=== PATIENT | male | born 1950 | race Caucasian/White ===

== ENCOUNTER 2016-12-02 18:20 | Inpatient (IN) | payer OTHER ==
[~2016-12-02] VITALS: Ht 167.6 cm; Wt 135.7 kg
[~2016-12-02 18:20] MED LIST: ADVAIR 500/501 DISK IH; AMARYL2 MG PO; CALCIUM600 M1 PO; CELEXA20 MG PO; CITALOPRAM HBR10 MG PO; COLACE100 MG PO; COREG12.5 M1 PO; COZAAR50 MG PO; DAILY VITE1 EAC1 PO; DALIRESP500 MCG PO; DOXYCYCLINE HY100 M3 PO; FLONASE16 G1 BOTH NARES; GLUCOPHAGE500 MG PO; IRON325 M1 PO; KLOR-CON M2020 MEQ PO; KLOR-CON-EF 2525 MEQ PO; LASIX20 MG PO; LASIX80 MG PO; LEVALBUTER1.25 MG/3 IH; LEVEMIR100 UNIT/2 SC; LEVOFLOXACIN750 MG PO; MIRALAX255 GM PO; MOBIC15 MG PO; NEURONTIN300 MG PO; NOVOFINE NEE1 NEEDLE MC; NOVOLOG100 UNIT/1 SC; PRAVACHOL20 MG PO; PREDNISONE10 MG PO; PREDNISONE20 MG PO; PROBIOTIC1 EAC1 PO; PROVENTIL,2.5 MG/3 M IH; SPIRIVA1 INHALATI IH; TAMSULOSIN HCL0.4 MG PO; TRAZODONE HCL50 MG PO; TUDORZA PRESS400 MCG IH; ULTRAM50 MG PO; VITAMIN D31000 UNIT PO; XOPENEX1.25 MG/0. IH
[2016-12-02 19:13] LABS: EOSINOPHIL (%) 0.5 % (0-5); EOSINOPHIL COUNT 0.1 K/uL (0-0.3); HEMATOCRIT 28.1 % (38.0-50.0); IMMATURE GRANULOCYTE (%) 1.4 % (0.0-0.7); IMMATURE GRANULOCYTE COUNT 2.7 K/uL; LYMPHOCYTE COUNT 1.4 K/uL (1.0-2.8); MCHC 30.2 G/DL (30.0-36.0); MCV 102.6 FL (86-99); MONOCYTE (%) 4.8 % (3-12); MONOCYTE COUNT 0.9 K/uL (0-0.8); NEUTROPHIL COUNT 16.8 K/uL (1.8-6.4); PLATELET COUNT 383 K/uL (156-360); RBC DIS.WIDTH-SD 57.4 % (39-53); RED BLOOD COUNT 2.74 M/uL (4.00-5.50); WHITE BLOOD COUNT 19.5 K/uL (4.1-10.2)
[2016-12-02 19:15] LABS: CHLORIDE 95 mEq/L (99-109); POTASSIUM 4.3 mEq/L (3.7-5.4); SODIUM 141 mEq/L (136-147)
[2016-12-02 19:17] LABS: GLUCOSE 120 mg/dL (70-99)
[2016-12-02 19:18] LABS: ANION GAP 8 MEQ/L (2-14)
[2016-12-02 19:20] LABS: GFR ESTIMATE (CALCULATED) > 59 mL/min/
[2016-12-02 19:21] LABS: UREA NITROGEN (BUN) 15 mg/dL (9-23)
[2016-12-02 19:32] LABS: TROP-I INTERPRETATION NEGATIVE; TROPONIN-I < 0.01 ng/mL (0.0-0.30)
[2016-12-02] MEDS ORDERED: SALINE NASAL SP45 ML BOTH NARES (21:11)
[2016-12-02 22:17] VITALS: BP 124/89
[2016-12-02 22:46] LABS: POINT-OF-CARE METER ID UU13113698
[2016-12-03 06:33] LABS: HEMATOCRIT 27.2 % (38.0-50.0); MCHC 29.8 G/DL (30.0-36.0); MCV 104.2 FL (86-99); MEAN PLAT.VOLUME 9.7 uM^3 (9.0-12.4); NRBC (%) 0.1 /100 WBC (0-0); PLATELET COUNT 322 K/uL (156-360); RBC DIS.WIDTH-CV 16.6 % (11.8-14.6); RBC DIS.WIDTH-SD 62.3 % (39-53); RED BLOOD COUNT 2.61 M/uL (4.00-5.50)
[2016-12-03 06:40] LABS: EOSINOPHIL (%) 0 % (0-5); IMMATURE GRANULOCYTE (%) 1.3 % (0.0-0.7); IMMATURE GRANULOCYTE COUNT 0.2 K/uL; LYMPHOCYTE COUNT 0.9 K/uL (1.0-2.8); MONOCYTE (%) 1.3 % (3-12); MONOCYTE COUNT 0.2 K/uL (0-0.8); NEUTROPHIL (%) 92.6 % (45-76); NEUTROPHIL COUNT 17.7 K/uL (1.8-6.4)
[2016-12-03 06:58] LABS: ANION GAP 9 MEQ/L (2-14); CHLORIDE 95 MEQ/L (99-109); GFR ESTIMATE (CALCULATED) > 59 mL/min/; SAMPLE HEMOLYSIS CHECK 0; SAMPLE ICTERIC CHECK 0; SAMPLE LIPEMIA CHECK 0; SODIUM 141 MEQ/L (136-147); UREA NITROGEN (BUN) 18 mg/dL (9-23)
[2016-12-03 07:12] LABS: GLUCOSE 215 mg/dL (70-99); POTASSIUM 5.4 MEQ/L (3.7-5.4)
[2016-12-03 07:45] VITALS: BP 118/58
[2016-12-03 07:50] LABS: POINT-OF-CARE METER ID UU14174216
[2016-12-03 11:03] LABS: POINT-OF-CARE METER ID UU14174216
[2016-12-03 11:37] VITALS: BP 138/60
[2016-12-03 15:43] VITALS: BP 130/55
[2016-12-03 16:03] LABS: POINT-OF-CARE METER ID UU14174216
[2016-12-03 19:10] VITALS: BP 122/53
[2016-12-03 23:10] VITALS: BP 112/52
[2016-12-04 03:40] VITALS: BP 175/74
[2016-12-04 07:13] VITALS: BP 115/59
[2016-12-04 07:15] LABS: ANION GAP 7 MEQ/L (2-14); CHLORIDE 95 MEQ/L (99-109); GFR ESTIMATE (CALCULATED) 59 mL/min/; GLUCOSE 225 mg/dL (70-99); IRON 42 MCG/DL (35-150); POTASSIUM 5.4 MEQ/L (3.7-5.4); SAMPLE HEMOLYSIS CHECK 0; SAMPLE ICTERIC CHECK 0; SAMPLE LIPEMIA CHECK 0; SODIUM 138 MEQ/L (136-147)
[2016-12-04 07:17] LABS: UREA NITROGEN (BUN) 32 mg/dL (9-23)
[2016-12-04 07:48] LABS: EOSINOPHIL (%) 0 % (0-5); HEMATOCRIT 27.7 % (38.0-50.0); IMMATURE GRANULOCYTE (%) 1.4 % (0.0-0.7); IMMATURE GRANULOCYTE COUNT 0.3 K/uL; LYMPHOCYTE COUNT 1.2 K/uL (1.0-2.8); MCH 31.6 PG (29.0-34.0); MCHC 30.3 G/DL (30.0-36.0); MCV 104.1 FL (86-99); MEAN PLAT.VOLUME 10.2 uM^3 (9.0-12.4); MONOCYTE (%) 3.2 % (3-12); MONOCYTE COUNT 0.6 K/uL (0-0.8); NEUTROPHIL (%) 89.3 % (45-76); NRBC (%) 0.2 /100 WBC (0-0); PLATELET COUNT 385 K/uL (156-360); RBC DIS.WIDTH-CV 16.6 % (11.8-14.6); RBC DIS.WIDTH-SD 61.7 % (39-53); RED BLOOD COUNT 2.66 M/uL (4.00-5.50); WHITE BLOOD COUNT 20.2 K/uL (4.1-10.2)
[2016-12-04 08:00] LABS: POINT-OF-CARE METER ID UU13113698
[2016-12-04 11:52] LABS: POINT-OF-CARE METER ID UU13113698
[2016-12-04 12:31] VITALS: BP 105/52
[2016-12-04 15:26] VITALS: BP 108/55
[2016-12-04 15:48] LABS: POINT-OF-CARE METER ID UU13113698
[2016-12-04 17:15] VITALS: BP 134/60
[2016-12-04 23:30] VITALS: BP 116/57
[2016-12-05 04:19] VITALS: BP 112/57
[2016-12-05 05:03] LABS: GFR ESTIMATE (CALCULATED) > 59 mL/min/
[2016-12-05 06:51] LABS: POINT-OF-CARE METER ID UU14149397
[2016-12-05 08:22] VITALS: BP 131/61
[2016-12-05 13:15] VITALS: BP 130/60
[2016-12-05 17:00] LABS: POINT-OF-CARE METER ID UU14149397
[2016-12-05 17:17] VITALS: BP 143/63
[2016-12-05 22:47] LABS: POINT-OF-CARE METER ID UU14149397
[2016-12-05 23:49] VITALS: BP 150/67
[2016-12-06 07:39] LABS: ANION GAP ND MEQ/L (2-14); CHLORIDE 97 MEQ/L (99-109); GFR ESTIMATE (CALCULATED) > 59 mL/min/; GLUCOSE 91 mg/dL (70-99); POTASSIUM 4.9 MEQ/L (3.7-5.4); SAMPLE HEMOLYSIS CHECK 0; SAMPLE ICTERIC CHECK 0; SAMPLE LIPEMIA CHECK 0; SODIUM 144 MEQ/L (136-147); UREA NITROGEN (BUN) 29 mg/dL (9-23)
[2016-12-06 08:10] VITALS: BP 161/67
[2016-12-06 08:52] LABS: CARBON DIOXIDE (BICARBONATE) > 40.0 MEQ/L (20-31)
[2016-12-06 09:05] LABS: HEMATOCRIT 26.2 % (38.0-50.0); MCH 31.7 PG (29.0-34.0); MCHC 30.2 G/DL (30.0-36.0); MCV 105.2 FL (86-99); MEAN PLAT.VOLUME 9.9 uM^3 (9.0-12.4); PLATELET COUNT 358 K/uL (156-360); RBC DIS.WIDTH-CV 16.1 % (11.8-14.6); RBC DIS.WIDTH-SD 59.7 % (39-53); RED BLOOD COUNT 2.49 M/uL (4.00-5.50); WHITE BLOOD COUNT 11.2 K/uL (4.1-10.2)
[2016-12-06 09:39] LABS: EOSINOPHIL (%) 0 % (0-5); IMMATURE GRANULOCYTE (%) 3.1 % (0.0-0.7); IMMATURE GRANULOCYTE COUNT 3.5 K/uL; LYMPHOCYTE COUNT 1.1 K/uL (1.0-2.8); MONOCYTE (%) 4.4 % (3-12); MONOCYTE COUNT 0.5 K/uL (0-0.8); NEUTROPHIL (%) 82.5 % (45-76); NEUTROPHIL COUNT 9.3 K/uL (1.8-6.4)
[2016-12-06 10:07] LABS: HEMATOLOGY COMMENT 1 SMEAR COMPATIBLE; PLAT.SUFFICIENCY ADEQUATE; USER ID BLP
[2016-12-06 11:49] VITALS: BP 118/58
[2016-12-06 12:37] LABS: POINT-OF-CARE METER ID UU14149397
[2016-12-06] MEDS ORDERED: PREDNISONE10 MG PO (13:44)
[2016-12-06] MEDS ORDERED: LEVAQUIN750 MG PO (13:44)
== END 2016-12-06 14:51 | disposition home or self-care (01) | DRG 193 ==
LOC: EME 18:20 → 3EAST 20:23 → 4EAST 20:23 → EDOF 20:23 → 4EAST 21:58 → 3EAST 12-04 17:12
PROVIDERS: Emergency Medicine; Family Medicine
DX: J18.9 Pneumonia, unspecified organism (principal); J96.21 Acute and chronic respiratory failure with hypoxia; J96.22 Acute and chronic respiratory failure with hypercapnia; J44.1 Chronic obstructive pulmonary disease with (acute) exacerbation; Z68.42 Body mass index [BMI] 45.0-49.9, adult; J98.11 Atelectasis; G47.33 Obstructive sleep apnea (adult) (pediatric); I73.9 Peripheral vascular disease, unspecified; E78.5 Hyperlipidemia, unspecified; E66.9 Obesity, unspecified; I10 Essential (primary) hypertension; E11.42 Type 2 diabetes mellitus with diabetic polyneuropathy; I25.10 Atherosclerotic heart disease of native coronary artery without angina pectoris; T81.89XD Other complications of procedures, not elsewhere classified, subsequent encounter; Z99.81 Dependence on supplemental oxygen; Z95.5 Presence of coronary angioplasty implant and graft; Z87.891 Personal history of nicotine dependence; Z79.4 Long term (current) use of insulin; Z79.84 Long term (current) use of oral hypoglycemic drugs; Z82.49 Family history of ischemic heart disease and other diseases of the circulatory system
CPT/HCPCS: 71020; 80048; 80202; 82565; 82948; 83540; 83605; 83880; 84466; 84484; 85025; 87040; 93005; 94640; 94640 76; 94799; 99202; 99281; 99285; J0696; J1650; J1815; J2405; J2543; J2930; J3370; J7030; J7050; J7512

== ENCOUNTER 2017-01-01 19:49 | Inpatient (IN) | payer OTHER ==
[~2017-01-01] VITALS: Ht 167.6 cm; Wt 129.1 kg
[~2017-01-01 19:49] MED LIST changes: +LEVAQUIN750 MG PO; +SALINE NASAL SP45 ML BOTH NARES
[2017-01-01 20:39] LABS: HEMATOCRIT 26.1 % (38.0-50.0); MCH 32.5 PG (29.0-34.0); MCHC 30.3 G/DL (30.0-36.0); MCV 107.4 FL (86-99); MEAN PLAT.VOLUME 8.7 uM^3 (9.0-12.4); PLATELET COUNT 374 K/uL (156-360); RBC DIS.WIDTH-CV 16.2 % (11.8-14.6); RBC DIS.WIDTH-SD 60.8 % (39-53); RED BLOOD COUNT 2.43 M/uL (4.00-5.50); WHITE BLOOD COUNT 10.1 K/uL (4.1-10.2)
[2017-01-01 20:47] LABS: CHLORIDE 92 mEq/L (99-109); POTASSIUM 4.6 mEq/L (3.7-5.4); SODIUM 142 mEq/L (136-147)
[2017-01-01 20:49] LABS: GLUCOSE 205 mg/dL (70-99)
[2017-01-01 20:53] LABS: GFR ESTIMATE (CALCULATED) > 59 mL/min/; UREA NITROGEN (BUN) 12 mg/dL (9-23)
[2017-01-01 21:11] LABS: CARBON DIOXIDE (BICARBONATE) > 40.0 mEq/L (20-31)
[2017-01-01 22:09] LABS: TOTAL BILIRUBIN 0.3 mg/dL (0.0-1.0)
[2017-01-01 22:10] LABS: ALKALINE PHOSPHATASE 60 IU/L (3-129)
[2017-01-01 22:12] LABS: DIRECT BILIRUBIN 0.2 mg/dL (0.0-0.3)
[2017-01-01 22:14] LABS: LIPASE 10 U/L (1.0-51.0)
[2017-01-02] MEDS ORDERED: NOVOLOG PE100 UNITS/ SC (01:42)
[2017-01-02 07:04] LABS: POINT-OF-CARE METER ID UU13113702
[2017-01-02 11:50] LABS: POINT-OF-CARE METER ID UU14100415; POINT-OF-CARE USER ID 608261323
[2017-01-02 12:10] VITALS: BP 140/61
[2017-01-02 15:13] VITALS: BP 108/56
[2017-01-02 15:47] LABS: POINT-OF-CARE METER ID UU14100415
[2017-01-02 17:08] VITALS: BP 120/53
[2017-01-02 17:16] VITALS: BP 120/53
[2017-01-02 20:05] VITALS: BP 119/57
[2017-01-02 22:24] LABS: POINT-OF-CARE METER ID UU13113717
[2017-01-03] VITALS (15 sets, daily range): BP systolic 103–149; BP diastolic 44–75
[2017-01-03 06:21] LABS: ANION GAP ND MEQ/L (2-14); CARBON DIOXIDE (BICARBONATE) > 40.0 MEQ/L (20-31); CHLORIDE 93 MEQ/L (99-109); GFR ESTIMATE (CALCULATED) > 59 mL/min/; GLUCOSE 110 mg/dL (70-99); POTASSIUM 4.4 MEQ/L (3.7-5.4); SAMPLE HEMOLYSIS CHECK 0; SAMPLE ICTERIC CHECK 0; SAMPLE LIPEMIA CHECK 0; SODIUM 140 MEQ/L (136-147); UREA NITROGEN (BUN) 11 mg/dL (9-23)
[2017-01-03 06:57] LABS: EOSINOPHIL (%) 1.7 % (0-5); EOSINOPHIL COUNT 0.1 K/uL (0-0.3); HEMATOCRIT 25.1 % (38.0-50.0); HEMATOLOGY COMMENT 1 SMEAR COMPATIBLE; IMMATURE GRANULOCYTE (%) 4.7 % (0.0-0.7); IMMATURE GRANULOCYTE COUNT 0.3 K/uL; LYMPHOCYTE COUNT 1.5 K/uL (1.0-2.8); MCH 31.6 PG (29.0-34.0); MCHC 29.9 G/DL (30.0-36.0); MCV 105.9 FL (86-99); MEAN PLAT.VOLUME 9.5 uM^3 (9.0-12.4); MONOCYTE COUNT 0.6 K/uL (0-0.8); NEUTROPHIL (%) 64.1 % (45-76); NEUTROPHIL COUNT 4.5 K/uL (1.8-6.4); PLATELET COUNT 348 K/uL (156-360); RBC DIS.WIDTH-CV 16.7 % (11.8-14.6); RBC DIS.WIDTH-SD 63.6 % (39-53); RED BLOOD COUNT 2.37 M/uL (4.00-5.50); USER ID CCL
[2017-01-03 07:13] LABS: POINT-OF-CARE METER ID UU13113717
[2017-01-04 05:36] LABS: CHLORIDE 91 mEq/L (99-109); POTASSIUM 4.8 mEq/L (3.7-5.4); SODIUM 143 mEq/L (136-147)
[2017-01-04 05:38] LABS: GLUCOSE 93 mg/dL (70-99)
[2017-01-04 05:42] LABS: GFR ESTIMATE (CALCULATED) > 59 mL/min/
[2017-01-04 05:43] LABS: UREA NITROGEN (BUN) 12 mg/dL (9-23)
[2017-01-04 06:16] LABS: ANISOCYTOSIS 1+; BASOPHIL COUNT 0.1 K/uL (0-0.1); EOSINOPHIL (%) 1.9 % (0-5); EOSINOPHIL COUNT 0.2 K/uL (0-0.3); HEMATOLOGY COMMENT 1 REV; IMMATURE GRANULOCYTE (%) 4.9 % (0.0-0.7); LYMPHOCYTE COUNT 1.3 K/uL (1.0-2.8); MACROCYTES 1+; MCH 31.6 PG (29.0-34.0); MEAN PLAT.VOLUME 8.8 uM^3 (9.0-12.4); MICROCYTOSIS FEW; MONOCYTE COUNT 0.7 K/uL (0-0.8); NEUTROPHIL (%) 69.2 % (45-76); NEUTROPHIL COUNT 5.6 K/uL (1.8-6.4); PLAT.SUFFICIENCY ADEQUATE; PLATELET COUNT 354 K/uL (156-360); RBC DIS.WIDTH-SD 67.4 % (39-53); WHITE BLOOD COUNT 8.1 K/uL (4.1-10.2)
[2017-01-04 06:17] LABS: RED BLOOD COUNT 2.94 M/uL (4.00-5.50)
[2017-01-04 06:18] LABS: ANION GAP 8 MEQ/L (2-14)
[2017-01-04 06:22] LABS: CARBON DIOXIDE (BICARBONATE) > 40.0 mEq/L (20-31)
[2017-01-04 08:30] VITALS: BP 150/64
[2017-01-04 11:30] VITALS: BP 107/51
[2017-01-04 12:03] LABS: POINT-OF-CARE METER ID UU14188577
[2017-01-04 16:29] VITALS: BP 109/45
[2017-01-04 23:45] VITALS: BP 105/55
[2017-01-05 06:11] LABS: HEMATOCRIT 28.6 % (38.0-50.0); MCH 31.5 PG (29.0-34.0); MCHC 30.4 G/DL (30.0-36.0); MCV 103.6 FL (86-99); MEAN PLAT.VOLUME 9.8 uM^3 (9.0-12.4); NRBC (%) 0.6 /100 WBC (0-0); RBC DIS.WIDTH-CV 17.8 % (11.8-14.6); RBC DIS.WIDTH-SD 66.3 % (39-53); RED BLOOD COUNT 2.76 M/uL (4.00-5.50); WHITE BLOOD COUNT 8.2 K/uL (4.1-10.2)
[2017-01-05 06:52] LABS: BASOPHIL COUNT 0.1 K/uL (0-0.1); EOSINOPHIL (%) 1.2 % (0-5); EOSINOPHIL COUNT 0.1 K/uL (0-0.3); HEMATOLOGY COMMENT 1 SMEAR COMPATIBLE; IMMATURE GRANULOCYTE (%) 3.9 % (0.0-0.7); IMMATURE GRANULOCYTE COUNT 0.3 K/uL; LYMPHOCYTE COUNT 1.3 K/uL (1.0-2.8); MONOCYTE (%) 7.2 % (3-12); MONOCYTE COUNT 0.6 K/uL (0-0.8); NEUTROPHIL (%) 71.3 % (45-76); NEUTROPHIL COUNT 5.9 K/uL (1.8-6.4); PLAT.SUFFICIENCY INCREASED
[2017-01-05 07:03] LABS: ANION GAP ND MEQ/L (2-14); CHLORIDE 91 MEQ/L (99-109); GFR ESTIMATE (CALCULATED) > 59 mL/min/; GLUCOSE 121 mg/dL (70-99); POTASSIUM 4.3 MEQ/L (3.7-5.4); SAMPLE HEMOLYSIS CHECK 0; SAMPLE ICTERIC CHECK 0; SAMPLE LIPEMIA CHECK 0; SODIUM 141 MEQ/L (136-147); UREA NITROGEN (BUN) 19 mg/dL (9-23)
[2017-01-05 07:05] LABS: CARBON DIOXIDE (BICARBONATE) > 40.0 MEQ/L (20-31)
[2017-01-05 08:47] VITALS: BP 127/65
[2017-01-05 17:04] LABS: POINT-OF-CARE METER ID UU14188577
[2017-01-05 17:53] VITALS: BP 101/46
[2017-01-06] VITALS: BP 126/60
[2017-01-06 06:57] LABS: POINT-OF-CARE METER ID UU14188577
[2017-01-06 08:27] VITALS: BP 108/56
[2017-01-06 08:40] LABS: HEMATOCRIT 31.1 % (38.0-50.0); MCH 30.6 PG (29.0-34.0); MCHC 29.3 G/DL (30.0-36.0); MCV 104.7 FL (86-99); MEAN PLAT.VOLUME 9.8 uM^3 (9.0-12.4); NRBC (%) 0.2 /100 WBC (0-0); PLATELET COUNT 367 K/uL (156-360); RBC DIS.WIDTH-CV 16.9 % (11.8-14.6); RBC DIS.WIDTH-SD 64.1 % (39-53); RED BLOOD COUNT 2.97 M/uL (4.00-5.50); WHITE BLOOD COUNT 7.9 K/uL (4.1-10.2)
[2017-01-06 08:54] LABS: EOSINOPHIL (%) 1.1 % (0-5); EOSINOPHIL COUNT 0.1 K/uL (0-0.3); IMMATURE GRANULOCYTE COUNT 0.3 K/uL; LYMPHOCYTE COUNT 1.4 K/uL (1.0-2.8); MONOCYTE (%) 7.1 % (3-12); MONOCYTE COUNT 0.6 K/uL (0-0.8); NEUTROPHIL (%) 69.9 % (45-76); NEUTROPHIL COUNT 5.5 K/uL (1.8-6.4)
[2017-01-06 08:56] LABS: ANION GAP ND MEQ/L (2-14); CHLORIDE 90 MEQ/L (99-109); GFR ESTIMATE (CALCULATED) > 59 mL/min/; GLUCOSE 115 mg/dL (70-99); POTASSIUM 4.8 MEQ/L (3.7-5.4); SAMPLE HEMOLYSIS CHECK 0; SAMPLE ICTERIC CHECK 0; SAMPLE LIPEMIA CHECK 0; SODIUM 142 MEQ/L (136-147); UREA NITROGEN (BUN) 19 mg/dL (9-23)
[2017-01-06 09:00] LABS: CARBON DIOXIDE (BICARBONATE) > 40.0 MEQ/L (20-31)
[2017-01-06 09:27] LABS: HEMATOLOGY COMMENT 1 SMEAR COMPATIBLE; PLAT.SUFFICIENCY ADEQUATE
[2017-01-06] MEDS ORDERED: AUGMENTIN875 MG PO (12:39)
== END 2017-01-06 13:53 | disposition home or self-care (01) | DRG 194 ==
LOC: EME 19:49 → EDOF 01-02 01:11 → 3EAST 01-02 01:11
PROVIDERS: Emergency Medicine; Family Medicine
PROC: 30233N1 Transfusion of Nonautologous Red Blood Cells into Peripheral Vein, Percutaneous Approach (ICD-10-PCS; principal; 2017-01-03)
DX: J18.9 Pneumonia, unspecified organism (principal); Z68.42 Body mass index [BMI] 45.0-49.9, adult; J44.9 Chronic obstructive pulmonary disease, unspecified; E66.9 Obesity, unspecified; D53.9 Nutritional anemia, unspecified; I25.10 Atherosclerotic heart disease of native coronary artery without angina pectoris; Z79.4 Long term (current) use of insulin; I73.9 Peripheral vascular disease, unspecified; Z95.1 Presence of aortocoronary bypass graft; F17.210 Nicotine dependence, cigarettes, uncomplicated; E11.40 Type 2 diabetes mellitus with diabetic neuropathy, unspecified; T81.89XA Other complications of procedures, not elsewhere classified, initial encounter
CPT/HCPCS: 71010; 71020; 74177; 80048; 80076; 82948; 83605; 83690; 85025; 85027; 86850; 86900; 86901; 86920; 87040; 94640 76; 94760; 94799; 99202; 99281; 99285; J0456; J0696; J1650; J1815; J2405; J7050; J7644; P9040

== ENCOUNTER 2017-03-02 18:23 | Inpatient (IN) | payer OTHER ==
[~2017-03-02] VITALS: Ht 165.1 cm; Wt 127.6 kg
[~2017-03-02 18:23] MED LIST changes: +AUGMENTIN875 MG PO; +NOVOLOG PE100 UNITS/ SC
[2017-03-02 19:40] LABS: EOSINOPHIL (%) 0.3 % (0-5); HEMATOCRIT 27.9 % (38.0-50.0); IMMATURE GRANULOCYTE (%) 1.1 % (0.0-0.7); IMMATURE GRANULOCYTE COUNT 0.1 K/uL; INSTRUMENT ABS NEUTROPHIL CT 10.7 K/uL; LYMPHOCYTE COUNT 0.8 K/uL (1.0-2.8); MCH 32.4 PG (29.0-34.0); MCHC 29.7 G/DL (30.0-36.0); MEAN PLAT.VOLUME 9.3 uM^3 (9.0-12.4); MONOCYTE COUNT 0.8 K/uL (0-0.8); NEUTROPHIL (%) 86.3 % (45-76); NEUTROPHIL COUNT 10.7 K/uL (1.8-6.4); PLATELET COUNT 249 K/uL (156-360); RBC DIS.WIDTH-CV 15.9 % (11.8-14.6); RBC DIS.WIDTH-SD 63.4 % (39-53); RED BLOOD COUNT 2.56 M/uL (4.00-5.50); WHITE BLOOD COUNT 12.4 K/uL (4.1-10.2)
[2017-03-02 19:54] LABS: CHLORIDE 93 mEq/L (99-109); POTASSIUM 4.6 mEq/L (3.7-5.4); SODIUM 144 mEq/L (136-147)
[2017-03-02 19:56] LABS: GLUCOSE 104 mg/dL (70-99)
[2017-03-02 19:57] LABS: ANION GAP 8 MEQ/L (2-14)
[2017-03-02 20:00] LABS: GFR ESTIMATE (CALCULATED) > 59 mL/min/
[2017-03-02 20:01] LABS: CARBON DIOXIDE (BICARBONATE) > 40.0 mEq/L (20-31); UREA NITROGEN (BUN) 21 mg/dL (9-23)
[2017-03-02 20:10] LABS: TROP-I INTERPRETATION NEGATIVE; TROPONIN-I < 0.01 ng/mL (0.0-0.30)
[2017-03-02 20:25] LABS: BASE EXCESS 21.4 mEq/L (-3 to +3); CARBOXY HGB 2.5 % (0-5); METHEMOGLOBIN 1.2 % (0-1.5)
[2017-03-02 20:27] LABS: COMMENTS - BLOOD GASES C+A+; DEVICE NC; O2 FLOW 4 L/MIN; PCO2 106 mm Hg (35-45); PO2 98 mm Hg (80-100); SITE RR; TOTAL RESP RATE 20 resp/min; pH 7.29 (7.35-7.45)
[2017-03-02 22:37] LABS: BASE EXCESS 19.7 mEq/L (-3 to +3); BICARBONATE 48.8 mEq/L (22-26); CARBOXY HGB 2.6 % (0-5); COMMENTS - BLOOD GASES C+A+; DEVICE NIV; FI02 30 %; METHEMOGLOBIN 1.4 % (0-1.5); PCO2 97 mm Hg (35-45); PO2 72 mm Hg (80-100); SITE RR; pH 7.31 (7.35-7.45)
[2017-03-02 22:38] LABS: CONTINUOUS POS AIRWAY PRESSURE 5 cm H2O; MODE SPONT; PRES. SUPPORT 15 CM/H2O; TOTAL RESP RATE 22 resp/min
[2017-03-03 02:26] LABS: D-DIMER ELISA 0.53 mg/L FEU (< 0.57)
[2017-03-03 03:08] VITALS: BP 190/81
[2017-03-03 03:49] LABS: POINT-OF-CARE METER ID UU13113781
[2017-03-03 03:55] LABS: INFLUENZA A VIRAL ANTIGEN NEGATIVE; INFLUENZA B VIRAL ANTIGEN NEGATIVE
[2017-03-03 04:04] VITALS: BP 190/81
[2017-03-03 05:02] LABS: ADD MIUA? NO; BILIRUBIN NEGATIVE; BLOOD NEGATIVE; COLOR YELLOW ((YELLOW)); GLUCOSE (STRIP) NEGATIVE; KETONES 5; LEUKOCYTES NEGATIVE; NITRITE NEGATIVE; PROTEIN (STRIP) 30; SPECIFIC GRAVITY 1.016 (1.000-1.030); UCUL ADDED? NO; UROBILINOGEN 0.2 MG/DL (0.2-1.0)
[2017-03-03 07:19] VITALS: BP 144/60
[2017-03-03 09:34] LABS: EOSINOPHIL (%) 0 % (0-5); IMMATURE GRANULOCYTE (%) 1.4 % (0.0-0.7); IMMATURE GRANULOCYTE COUNT 0.2 K/uL; INSTRUMENT ABS NEUTROPHIL CT 10.8 K/uL; LYMPHOCYTE COUNT 0.3 K/uL (1.0-2.8); MCH 32.3 PG (29.0-34.0); MCHC 30.4 G/DL (30.0-36.0); MCV 106.3 FL (86-99); MEAN PLAT.VOLUME 9.7 uM^3 (9.0-12.4); MONOCYTE (%) 1.2 % (3-12); MONOCYTE COUNT 0.1 K/uL (0-0.8); NEUTROPHIL (%) 94.3 % (45-76); NEUTROPHIL COUNT 10.8 K/uL (1.8-6.4); PLATELET COUNT 246 K/uL (156-360); RBC DIS.WIDTH-CV 15.9 % (11.8-14.6); RBC DIS.WIDTH-SD 62.1 % (39-53); RED BLOOD COUNT 2.54 M/uL (4.00-5.50); WHITE BLOOD COUNT 11.5 K/uL (4.1-10.2)
[2017-03-03 09:58] LABS: ANION GAP 6 MEQ/L (2-14); CHLORIDE 93 MEQ/L (99-109); GFR ESTIMATE (CALCULATED) > 59 mL/min/; POTASSIUM 5.2 MEQ/L (3.7-5.4); SAMPLE HEMOLYSIS CHECK 0; SAMPLE ICTERIC CHECK 0; SAMPLE LIPEMIA CHECK 0; SODIUM 139 MEQ/L (136-147); UREA NITROGEN (BUN) 24 mg/dL (9-23)
[2017-03-03 09:59] LABS: TROP-I INTERPRETATION NEGATIVE; TROPONIN-I < 0.01 ng/mL (0.0-0.30)
[2017-03-03 10:07] LABS: INTERNAL CONTROL VALID? YES
[2017-03-03 10:25] LABS: GLUCOSE 348 mg/dL (70-99)
[2017-03-03 11:36] VITALS: BP 131/58
[2017-03-03 11:51] LABS: POINT-OF-CARE METER ID UU14174216
[2017-03-03 12:34] LABS: METH RESISTANT S AUREUS PCR NEGATIVE (NEGATIVE)
[2017-03-03 12:58] LABS: PROBE CHECK PASS; SPECIMEN PROCESSING CONTROL PASS
[2017-03-03 15:30] VITALS: BP 128/57
[2017-03-03 17:39] LABS: POINT-OF-CARE METER ID UU14174216
[2017-03-03 20:30] VITALS: BP 142/63
[2017-03-03 21:04] LABS: POINT-OF-CARE METER ID UU14174216
[2017-03-04] VITALS (8 sets, daily range): BP systolic 119–161; BP diastolic 57–71
[2017-03-04 06:30] LABS: EOSINOPHIL (%) 0 % (0-5); HEMATOCRIT 23.7 % (38.0-50.0); IMMATURE GRANULOCYTE (%) 1.3 % (0.0-0.7); IMMATURE GRANULOCYTE COUNT 0.1 K/uL; INSTRUMENT ABS NEUTROPHIL CT 8.3 K/uL; LYMPHOCYTE COUNT 0.5 K/uL (1.0-2.8); MCH 32.7 PG (29.0-34.0); MCHC 30.8 G/DL (30.0-36.0); MCV 106.3 FL (86-99); MEAN PLAT.VOLUME 9.7 uM^3 (9.0-12.4); MONOCYTE (%) 2.8 % (3-12); MONOCYTE COUNT 0.3 K/uL (0-0.8); NEUTROPHIL (%) 90.3 % (45-76); NEUTROPHIL COUNT 8.3 K/uL (1.8-6.4); PLATELET COUNT 245 K/uL (156-360); RBC DIS.WIDTH-CV 15.7 % (11.8-14.6); RED BLOOD COUNT 2.23 M/uL (4.00-5.50); WHITE BLOOD COUNT 9.1 K/uL (4.1-10.2)
[2017-03-04 06:51] LABS: ANION GAP 5 MEQ/L (2-14); CHLORIDE 96 MEQ/L (99-109); GFR ESTIMATE (CALCULATED) > 59 mL/min/; GLUCOSE 208 mg/dL (70-99); POTASSIUM 5.6 MEQ/L (3.7-5.4); SAMPLE HEMOLYSIS CHECK 0; SAMPLE ICTERIC CHECK 0; SAMPLE LIPEMIA CHECK 0; SODIUM 141 MEQ/L (136-147); UREA NITROGEN (BUN) 34 mg/dL (9-23)
[2017-03-04 08:21] LABS: POINT-OF-CARE USER ID ENVKC36
[2017-03-04 09:42] LABS: HEMATOCRIT 25.5 % (38.0-50.0); MCV 107.1 FL (86-99)
[2017-03-04 11:57] LABS: POINT-OF-CARE USER ID ENVKC36
[2017-03-04 17:07] LABS: POINT-OF-CARE USER ID ENVKC36
[2017-03-04 21:30] LABS: POINT-OF-CARE METER ID UU14174225
[2017-03-05] VITALS (7 sets, daily range): BP systolic 114–163; BP diastolic 56–71
[2017-03-05 06:21] LABS: EOSINOPHIL (%) 0 % (0-5); HEMATOCRIT 26.1 % (38.0-50.0); IMMATURE GRANULOCYTE (%) 1.1 % (0.0-0.7); IMMATURE GRANULOCYTE COUNT 0.1 K/uL; INSTRUMENT ABS NEUTROPHIL CT 10.1 K/uL; LYMPHOCYTE COUNT 0.6 K/uL (1.0-2.8); MCH 32.1 PG (29.0-34.0); MCHC 29.9 G/DL (30.0-36.0); MCV 107.4 FL (86-99); MEAN PLAT.VOLUME 9.7 uM^3 (9.0-12.4); MONOCYTE (%) 2.8 % (3-12); MONOCYTE COUNT 0.3 K/uL (0-0.8); NEUTROPHIL (%) 90.8 % (45-76); NEUTROPHIL COUNT 10.1 K/uL (1.8-6.4); PLATELET COUNT 277 K/uL (156-360); RBC DIS.WIDTH-CV 15.4 % (11.8-14.6); RBC DIS.WIDTH-SD 60.5 % (39-53); RED BLOOD COUNT 2.43 M/uL (4.00-5.50); WHITE BLOOD COUNT 11.1 K/uL (4.1-10.2)
[2017-03-05 06:56] LABS: ANION GAP ND MEQ/L (2-14); CHLORIDE 96 MEQ/L (99-109); GFR ESTIMATE (CALCULATED) > 59 mL/min/; GLUCOSE 179 mg/dL (70-99); POTASSIUM 5.7 MEQ/L (3.7-5.4); SAMPLE HEMOLYSIS CHECK 0; SAMPLE ICTERIC CHECK 0; SAMPLE LIPEMIA CHECK 0; SODIUM 141 MEQ/L (136-147); UREA NITROGEN (BUN) 43 mg/dL (9-23)
[2017-03-05 07:01] LABS: CARBON DIOXIDE (BICARBONATE) > 40.0 MEQ/L (20-31)
[2017-03-05 08:22] LABS: IRON 74 MCG/DL (35-150)
[2017-03-05 08:40] LABS: POINT-OF-CARE METER ID UU14188625
[2017-03-06] VITALS (8 sets, daily range): BP systolic 117–180; BP diastolic 55–73
[2017-03-06 06:52] LABS: EOSINOPHIL (%) 0 % (0-5); HEMATOCRIT 26.2 % (38.0-50.0); IMMATURE GRANULOCYTE (%) 1.7 % (0.0-0.7); IMMATURE GRANULOCYTE COUNT 0.2 K/uL; INSTRUMENT ABS NEUTROPHIL CT 7.9 K/uL; LYMPHOCYTE COUNT 0.6 K/uL (1.0-2.8); MCH 32.5 PG (29.0-34.0); MCHC 30.2 G/DL (30.0-36.0); MCV 107.8 FL (86-99); MEAN PLAT.VOLUME 9.6 uM^3 (9.0-12.4); MONOCYTE (%) 3.6 % (3-12); MONOCYTE COUNT 0.3 K/uL (0-0.8); NEUTROPHIL (%) 88.1 % (45-76); NEUTROPHIL COUNT 7.9 K/uL (1.8-6.4); PLATELET COUNT 275 K/uL (156-360); RBC DIS.WIDTH-CV 15.4 % (11.8-14.6); RBC DIS.WIDTH-SD 61.1 % (39-53); RED BLOOD COUNT 2.43 M/uL (4.00-5.50); WHITE BLOOD COUNT 8.9 K/uL (4.1-10.2)
[2017-03-06 07:16] LABS: ANION GAP ND MEQ/L (2-14); CHLORIDE 94 MEQ/L (99-109); GFR ESTIMATE (CALCULATED) > 59 mL/min/; GLUCOSE 151 mg/dL (70-99); POTASSIUM 4.6 MEQ/L (3.7-5.4); SAMPLE HEMOLYSIS CHECK 0; SAMPLE ICTERIC CHECK 0; SAMPLE LIPEMIA CHECK 0; SODIUM 142 MEQ/L (136-147); UREA NITROGEN (BUN) 39 mg/dL (9-23)
[2017-03-06 07:25] LABS: CARBON DIOXIDE (BICARBONATE) > 40.0 MEQ/L (20-31)
[2017-03-07] VITALS (8 sets, daily range): BP systolic 120–151; BP diastolic 58–90
[2017-03-07 08:03] LABS: EOSINOPHIL (%) 0 % (0-5); HEMATOCRIT 27.4 % (38.0-50.0); IMMATURE GRANULOCYTE COUNT 0.2 K/uL; INSTRUMENT ABS NEUTROPHIL CT 7.1 K/uL; LYMPHOCYTE COUNT 1.2 K/uL (1.0-2.8); MCHC 29.9 G/DL (30.0-36.0); MEAN PLAT.VOLUME 9.6 uM^3 (9.0-12.4); MONOCYTE COUNT 0.7 K/uL (0-0.8); NEUTROPHIL (%) 76.8 % (45-76); NEUTROPHIL COUNT 7.1 K/uL (1.8-6.4); PLATELET COUNT 267 K/uL (156-360); RBC DIS.WIDTH-CV 15.2 % (11.8-14.6); RBC DIS.WIDTH-SD 60.9 % (39-53); RED BLOOD COUNT 2.56 M/uL (4.00-5.50); WHITE BLOOD COUNT 9.3 K/uL (4.1-10.2)
[2017-03-07 08:32] LABS: ANION GAP ND MEQ/L (2-14); CARBON DIOXIDE (BICARBONATE) > 40.0 MEQ/L (20-31); CHLORIDE 99 MEQ/L (99-109); GFR ESTIMATE (CALCULATED) > 59 mL/min/; GLUCOSE 119 mg/dL (70-99); POTASSIUM 4.7 MEQ/L (3.7-5.4); SAMPLE HEMOLYSIS CHECK 0; SAMPLE ICTERIC CHECK 0; SAMPLE LIPEMIA CHECK 0; SODIUM 149 MEQ/L (136-147); UREA NITROGEN (BUN) 35 mg/dL (9-23)
[2017-03-07 16:11] LABS: POINT-OF-CARE METER ID UU14174225
[2017-03-08 04:16] VITALS: BP 134/87
[2017-03-08 07:00] VITALS: BP 134/64
[2017-03-08 09:54] LABS: HEMATOCRIT 29.9 % (38.0-50.0); MCH 32.7 PG (29.0-34.0); MCHC 30.4 G/DL (30.0-36.0); MCV 107.6 FL (86-99); NRBC (%) 0.3 /100 WBC (0-0); PLATELET COUNT 294 K/uL (156-360); RBC DIS.WIDTH-CV 15.3 % (11.8-14.6); RBC DIS.WIDTH-SD 60.8 % (39-53); RED BLOOD COUNT 2.78 M/uL (4.00-5.50); WHITE BLOOD COUNT 9.6 K/uL (4.1-10.2)
[2017-03-08 10:23] LABS: ANION GAP ND MEQ/L (2-14); CARBON DIOXIDE (BICARBONATE) > 40.0 MEQ/L (20-31); CHLORIDE 95 MEQ/L (99-109); GFR ESTIMATE (CALCULATED) > 59 mL/min/; GLUCOSE 118 mg/dL (70-99); POTASSIUM 4.9 MEQ/L (3.7-5.4); SAMPLE HEMOLYSIS CHECK 0; SAMPLE ICTERIC CHECK 0; SAMPLE LIPEMIA CHECK 0; SODIUM 142 MEQ/L (136-147); UREA NITROGEN (BUN) 26 mg/dL (9-23)
[2017-03-08 10:37] VITALS: BP 136/64
[2017-03-08 11:35] LABS: POINT-OF-CARE METER ID UU14188625
[2017-03-08] MEDS ORDERED: CIPROFLOXACIN500 M1 PO (14:56)
[2017-03-08] MEDS ORDERED: DOXYCYCLINE HY100 M3 PO (14:56)
[2017-03-08] MEDS ORDERED: PREDNISONE20 MG PO (14:57)
[2017-03-08] MEDS ORDERED: LEVEMIR100 UNIT/2 SC (14:58)
== END 2017-03-08 16:30 | disposition home or self-care (01) | DRG 190 ==
LOC: EME 18:23 → 5SOUTH 03-03 01:29 → EDOF 03-03 01:29 → 4EAST 03-03 01:29 → EDOF 03-03 01:29 → 4EAST 03-03 02:55 → 5SOUTH 03-04 16:50
PROVIDERS: Emergency Medicine; Hospitalist; Internal Medicine; Student in an Organized Health Care Education/Training Program
PROC: 5A09357 Assistance with Respiratory Ventilation, Less than 24 Consecutive Hours, Continuous Positive Airway Pressure (ICD-10-PCS; principal; 2017-03-03)
DX: J44.1 Chronic obstructive pulmonary disease with (acute) exacerbation (principal); J18.9 Pneumonia, unspecified organism; J96.22 Acute and chronic respiratory failure with hypercapnia; E87.2 Acidosis; Z68.42 Body mass index [BMI] 45.0-49.9, adult; J44.0 Chronic obstructive pulmonary disease with (acute) lower respiratory infection; J98.11 Atelectasis; E66.2 Morbid (severe) obesity with alveolar hypoventilation; E87.3 Alkalosis; L89.150 Pressure ulcer of sacral region, unstageable; I50.9 Heart failure, unspecified; J20.9 Acute bronchitis, unspecified; Z99.81 Dependence on supplemental oxygen; E11.21 Type 2 diabetes mellitus with diabetic nephropathy; Z87.891 Personal history of nicotine dependence; I11.0 Hypertensive heart disease with heart failure; E78.5 Hyperlipidemia, unspecified; D53.9 Nutritional anemia, unspecified; Z95.1 Presence of aortocoronary bypass graft; I34.0 Nonrheumatic mitral (valve) insufficiency; I27.2 Other secondary pulmonary hypertension; E87.5 Hyperkalemia; I42.9 Cardiomyopathy, unspecified
CPT/HCPCS: 36600; 71010; 71020; 71275; 80048; 80202; 81003; 82607; 82728; 82746; 82803; 82948; 83540; 83605; 83921 90; 84132 91; 84466; 84484; 85014; 85018; 85025; 85027; 85379; 87040; 87070; 87077; 87181; 87185; 87205; 87449; 87502; 87641; 92610 GN; 93005; 94002; 94640; 94640 76; 94644; 94660; 94667; 94668; 94799; 99202; 99281; 99285; J0456; J0692; J1100; J1644; J1815; J1940; J1956; J2930; J3370; J3475; J7050; J7512; J7644

== ENCOUNTER 2017-03-20 06:08 | Inpatient (IN) | payer OTHER ==
[~2017-03-20] VITALS: Ht 167.6 cm; Wt 128.9 kg
[~2017-03-20 06:08] MED LIST changes: +CIPROFLOXACIN500 M1 PO
[2017-03-20 07:27] LABS: EOSINOPHIL (%) 0.3 % (0-5); HEMATOCRIT 27.7 % (38.0-50.0); IMMATURE GRANULOCYTE (%) 0.5 % (0.0-0.7); IMMATURE GRANULOCYTE COUNT 0.1 K/uL; INSTRUMENT ABS NEUTROPHIL CT 9.5 K/uL; MCH 33.1 PG (29.0-34.0); MCV 110.4 FL (86-99); MONOCYTE (%) 5.8 % (3-12); MONOCYTE COUNT 0.7 K/uL (0-0.8); NEUTROPHIL (%) 84.7 % (45-76); NEUTROPHIL COUNT 9.5 K/uL (1.8-6.4); RBC DIS.WIDTH-CV 15.7 % (11.8-14.6); RED BLOOD COUNT 2.51 M/uL (4.00-5.50); WHITE BLOOD COUNT 11.2 K/uL (4.1-10.2)
[2017-03-20 07:45] LABS: ANION GAP ND MEQ/L (2-14); CHLORIDE 90 MEQ/L (99-109); POTASSIUM 4.7 MEQ/L (3.7-5.4); SAMPLE HEMOLYSIS CHECK 0; SAMPLE ICTERIC CHECK 0; SAMPLE LIPEMIA CHECK 0; SODIUM 140 MEQ/L (136-147); TOTAL BILIRUBIN 0.5 MG/DL (0.0-1.0)
[2017-03-20 07:51] LABS: TROP-I INTERPRETATION NEGATIVE; TROPONIN-I < 0.01 ng/mL (0.0-0.30)
[2017-03-20 07:53] LABS: ALKALINE PHOSPHATASE 49 IU/L (3-129); GFR ESTIMATE (CALCULATED) > 59 mL/min/; GLUCOSE 126 mg/dL (70-99); UREA NITROGEN (BUN) 22 mg/dL (9-23)
[2017-03-20 07:54] LABS: CARBON DIOXIDE (BICARBONATE) > 40.0 MEQ/L (20-31)
[2017-03-20 08:11] LABS: MEAN PLAT.VOLUME 9.3 uM^3 (9.0-12.4); PLAT.SUFFICIENCY ADEQUATE
[2017-03-20 08:13] LABS: PLATELET COUNT 148 K/uL (156-360)
[2017-03-20] MEDS ORDERED: GLUCOPHAGE XR,500 MG PO (08:46)
[2017-03-20] MEDS ORDERED: PREDNISONE10 MG PO (08:46)
[2017-03-20] MEDS ORDERED: SALINE NASAL SP45 ML BOTH NARES (08:47)
[2017-03-20 11:14] VITALS: BP 122/68
[2017-03-20 12:08] LABS: POINT-OF-CARE METER ID UU14174225
[2017-03-20 15:40] VITALS: BP 154/74
[2017-03-20 16:55] LABS: ABSOLUTE RETICULOCYTE CT. 0.1 M/uL (0.02-0.08); IMM.RETIC FRACTION 18.4 % (3-19); RETIC HGB EQUIVALENT 33.3 (28-36)
[2017-03-20 16:57] LABS: RETICULOCYTE COUNT 2.3 % (0.5-1.8)
[2017-03-20 17:18] LABS: TROP-I INTERPRETATION NEGATIVE; TROPONIN-I < 0.01 ng/mL (0.0-0.30)
[2017-03-20 19:47] VITALS: BP 148/70
[2017-03-20 22:34] LABS: TROP-I INTERPRETATION NEGATIVE; TROPONIN-I < 0.01 ng/mL (0.0-0.30)
[2017-03-21] VITALS (7 sets, daily range): BP systolic 127–169; BP diastolic 58–74
[2017-03-22 03:49] VITALS: BP 113/55
[2017-03-22 07:38] VITALS: BP 133/65
[2017-03-22 08:14] LABS: POINT-OF-CARE METER ID UU14188625
[2017-03-22 10:51] VITALS: BP 133/57
[2017-03-22 11:55] LABS: POINT-OF-CARE METER ID UU14188625
[2017-03-22 16:28] VITALS: BP 129/58
[2017-03-22 16:43] LABS: POINT-OF-CARE METER ID UU14188625
[2017-03-22 19:49] VITALS: BP 128/59
[2017-03-22 21:17] LABS: POINT-OF-CARE METER ID UU14188625
[2017-03-23] VITALS: BP 125/59
[2017-03-23 07:17] LABS: POINT-OF-CARE METER ID UU14174225
[2017-03-23 07:37] LABS: MCH 33.3 PG (29.0-34.0); MCHC 30.8 G/DL (30.0-36.0); MCV 108.1 FL (86-99); MEAN PLAT.VOLUME 10.2 uM^3 (9.0-12.4); PLATELET COUNT 135 K/uL (156-360); RBC DIS.WIDTH-CV 15.4 % (11.8-14.6); RBC DIS.WIDTH-SD 60.4 % (39-53); RED BLOOD COUNT 2.22 M/uL (4.00-5.50); WHITE BLOOD COUNT 8.1 K/uL (4.1-10.2)
[2017-03-23 07:38] VITALS: BP 130/64
[2017-03-23 08:10] LABS: ANION GAP ND MEQ/L (2-14); CHLORIDE 91 MEQ/L (99-109); GFR ESTIMATE (CALCULATED) > 59 mL/min/; GLUCOSE 156 mg/dL (70-99); POTASSIUM 5.1 MEQ/L (3.7-5.4); SAMPLE HEMOLYSIS CHECK 0; SAMPLE ICTERIC CHECK 0; SAMPLE LIPEMIA CHECK 0; SODIUM 141 MEQ/L (136-147)
[2017-03-23 08:11] LABS: CARBON DIOXIDE (BICARBONATE) > 40.0 MEQ/L (20-31); UREA NITROGEN (BUN) 38 mg/dL (9-23)
[2017-03-23 15:32] VITALS: BP 133/56
[2017-03-23 16:22] LABS: POINT-OF-CARE METER ID UU14174225
[2017-03-23 21:58] LABS: POINT-OF-CARE METER ID UU14188625
[2017-03-24] VITALS: BP 130/58
[2017-03-24 07:02] LABS: HEMATOCRIT 26.1 % (38.0-50.0); MCH 33.2 PG (29.0-34.0); MEAN PLAT.VOLUME 9.9 uM^3 (9.0-12.4); PLATELET COUNT 136 K/uL (156-360); RBC DIS.WIDTH-CV 15.1 % (11.8-14.6); RBC DIS.WIDTH-SD 59.4 % (39-53); RED BLOOD COUNT 2.44 M/uL (4.00-5.50); WHITE BLOOD COUNT 6.4 K/uL (4.1-10.2)
[2017-03-24 07:26] LABS: ANION GAP ND MEQ/L (2-14); CHLORIDE 88 MEQ/L (99-109); GFR ESTIMATE (CALCULATED) > 59 mL/min/; GLUCOSE 164 mg/dL (70-99); POTASSIUM 5.1 MEQ/L (3.7-5.4); SAMPLE HEMOLYSIS CHECK 0; SAMPLE ICTERIC CHECK 0; SAMPLE LIPEMIA CHECK 0; SODIUM 139 MEQ/L (136-147); UREA NITROGEN (BUN) 37 mg/dL (9-23)
[2017-03-24 07:31] LABS: CARBON DIOXIDE (BICARBONATE) > 40.0 MEQ/L (20-31)
[2017-03-24 07:33] VITALS: BP 173/74
[2017-03-24 07:33] LABS: POINT-OF-CARE METER ID UU14174225
[2017-03-24 15:35] VITALS: BP 159/65
[2017-03-24 16:16] LABS: POINT-OF-CARE METER ID UU14188625
[2017-03-24 21:16] LABS: POINT-OF-CARE METER ID UU14174225
[2017-03-24 23:45] VITALS: BP 122/58
[2017-03-25 07:50] VITALS: BP 114/59
[2017-03-25] MEDS ORDERED: PRAVASTATIN SOD40 MG PO (11:17)
[2017-03-25] MEDS ORDERED: CEFDINIR300 MG PO (11:20)
[2017-03-25] MEDS ORDERED: PREDNISONE10 MG PO (11:21)
== END 2017-03-25 15:43 | disposition home health service (06) | DRG 189 ==
LOC: EME 06:08 → 5SOUTH 08:21 → EDOF 08:21 → 5SOUTH 09:30
PROVIDERS: Emergency Medicine; Hospitalist; Internal Medicine; Nurse Practitioner Adult Health
DX: J96.21 Acute and chronic respiratory failure with hypoxia (principal); L89.154 Pressure ulcer of sacral region, stage 4; D50.9 Iron deficiency anemia, unspecified; I11.0 Hypertensive heart disease with heart failure; J44.1 Chronic obstructive pulmonary disease with (acute) exacerbation; J90 Pleural effusion, not elsewhere classified; I50.32 Chronic diastolic (congestive) heart failure; E11.65 Type 2 diabetes mellitus with hyperglycemia; N31.9 Neuromuscular dysfunction of bladder, unspecified; Z68.42 Body mass index [BMI] 45.0-49.9, adult; E11.40 Type 2 diabetes mellitus with diabetic neuropathy, unspecified; E66.01 Morbid (severe) obesity due to excess calories; J40 Bronchitis, not specified as acute or chronic; E78.5 Hyperlipidemia, unspecified; I25.10 Atherosclerotic heart disease of native coronary artery without angina pectoris; M25.571 Pain in right ankle and joints of right foot; F32.9 Major depressive disorder, single episode, unspecified; F03.90 Unspecified dementia, unspecified severity, without behavioral disturbance, psychotic disturbance, mood disturbance, and anxiety; I45.10 Unspecified right bundle-branch block; R53.1 Weakness; D64.9 Anemia, unspecified; I73.9 Peripheral vascular disease, unspecified; G47.33 Obstructive sleep apnea (adult) (pediatric); Z95.1 Presence of aortocoronary bypass graft; Z99.81 Dependence on supplemental oxygen; Z79.4 Long term (current) use of insulin; I25.2 Old myocardial infarction; Z91.81 History of falling; Z87.891 Personal history of nicotine dependence
CPT/HCPCS: 70450; 71010; 72100; 73610; 73630; 80048; 80053; 82607; 82746; 82948; 83605; 83880; 84484; 85025; 85027; 85045; 87040; 87070; 87205; 93005; 93971; 94640; 94640 76; 94760; 94799; 97530 GO; 99202; 99281; 99284; J0696; J1650; J1815; J2920; J2930; J7050; J7644

== ENCOUNTER 2017-04-07 22:43 | Inpatient (IN) | payer OTHER ==
[~2017-04-07] VITALS: Ht 180.3 cm; Wt 116.5 kg
[~2017-04-07 22:43] MED LIST changes: +CEFDINIR300 MG PO; +GLUCOPHAGE XR,500 MG PO; +PRAVASTATIN SOD40 MG PO
[2017-04-07 23:50] LABS: HEMATOCRIT 29.4 % (38.0-50.0); MCHC 30.3 G/DL (30.0-36.0); MCV 108.9 FL (86-99); MEAN PLAT.VOLUME 9.7 uM^3 (9.0-12.4); PLATELET COUNT 238 K/uL (156-360); RBC DIS.WIDTH-SD 60.5 % (39-53)
[2017-04-07 23:51] LABS: WHITE BLOOD COUNT 9.4 K/uL (4.1-10.2)
[2017-04-07 23:54] LABS: PROTHROMBIN TIME 10.2 (9.2-11.2); PTT 32.5 (25-32)
[2017-04-07 23:55] LABS: CHLORIDE 87 mEq/L (99-109); SODIUM 139 mEq/L (136-147)
[2017-04-07 23:57] LABS: GLUCOSE 236 mg/dL (70-99)
[2017-04-07 23:58] LABS: ANION GAP 8 MEQ/L (2-14)
[2017-04-07 23:59] LABS: TOTAL BILIRUBIN 0.4 mg/dL (0.0-1.0)
[2017-04-07 23:59] LABS: BASE EXCESS 22.8 mEq/L (-3 to +3); BICARBONATE 53.4 mEq/L (22-26); CARBOXY HGB 2.3 % (0-5)
[2017-04-08] VITALS (7 sets, daily range): BP systolic 117–174; BP diastolic 57–77
[2017-04-08] LABS: ALKALINE PHOSPHATASE 51 IU/L (3-129)
[2017-04-08] LABS: COMMENTS - BLOOD GASES C+A+; DEVICE HFNC; O2 FLOW 6 L/MIN; PCO2 111 mm Hg (35-45); PO2 105 mm Hg (80-100); SITE RR; TOTAL RESP RATE 20 resp/min; pH 7.29 (7.35-7.45)
[2017-04-08 00:01] LABS: GFR ESTIMATE (CALCULATED) > 59 mL/min/
[2017-04-08 00:02] LABS: UREA NITROGEN (BUN) 16 mg/dL (9-23)
[2017-04-08 00:03] LABS: TROP-I INTERPRETATION NEGATIVE; TROPONIN-I < 0.01 ng/mL (0.0-0.30)
[2017-04-08 00:07] LABS: POTASSIUM 5.2 mEq/L (3.7-5.4)
[2017-04-08 00:09] LABS: CARBON DIOXIDE (BICARBONATE) > 40.0 mEq/L (20-31)
[2017-04-08 01:44] LABS: BASE EXCESS 23.9 mEq/L (-3 to +3); BICARBONATE 53.9 mEq/L (22-26); CARBOXY HGB 2.3 % (0-5); COMMENTS - BLOOD GASES C+A+; O2 FLOW 50 L/MIN; PCO2 107 mm Hg (35-45); PO2 57 mm Hg (80-100); SITE LR; pH 7.31 (7.35-7.45)
[2017-04-08 01:45] LABS: DEVICE HHFNC; FI02 35 %; TOTAL RESP RATE 20 resp/min
[2017-04-08] MEDS ORDERED: LANTUS 3 M100 UNITS1 SC (01:46)
[2017-04-08] MEDS ORDERED: GLUCOPHAGE500 MG PO (01:47)
[2017-04-08] MEDS ORDERED: KLOR-CON20 MEQ PO (01:48)
[2017-04-08] MEDS ORDERED: PREDNISONE10 MG PO ×2 (01:49→01:50)
[2017-04-08] MEDS ORDERED: PRAVACHOL40 MG PO (01:49)
[2017-04-08] MEDS ORDERED: ASCORBIC ACID500 M3 PO (01:51)
[2017-04-08] MEDS ORDERED: FLEET ENEMA-AD118 ML PR (01:53)
[2017-04-08] MEDS ORDERED: DULCOLAX10 MG PR (01:53)
[2017-04-08] MEDS ORDERED: PHILLIPS'400 MG/5 M PO (01:54)
[2017-04-08] MEDS ORDERED: TYLENOL REGULA325 MG PO (01:54)
[2017-04-08 05:52] LABS: METH RESISTANT S AUREUS PCR NEGATIVE (NEGATIVE)
[2017-04-08 05:59] LABS: PROBE CHECK PASS; SPECIMEN PROCESSING CONTROL PASS
[2017-04-08 10:21] LABS: TROP-I INTERPRETATION NEGATIVE; TROPONIN-I < 0.01 ng/mL (0.0-0.30)
[2017-04-08 16:31] LABS: POINT-OF-CARE METER ID UU13113781
[2017-04-09] VITALS (7 sets, daily range): BP systolic 122–181; BP diastolic 58–76
[2017-04-09 06:17] LABS: HEMATOCRIT 28.3 % (38.0-50.0); MCH 33.5 PG (29.0-34.0); MCHC 30.7 G/DL (30.0-36.0); MCV 108.8 FL (86-99); MEAN PLAT.VOLUME 10.1 uM^3 (9.0-12.4); PLATELET COUNT 210 K/uL (156-360); RBC DIS.WIDTH-CV 14.4 % (11.8-14.6); RBC DIS.WIDTH-SD 57.5 % (39-53); WHITE BLOOD COUNT 8.1 K/uL (4.1-10.2)
[2017-04-09 06:49] LABS: ANION GAP ND MEQ/L (2-14); CHLORIDE 89 MEQ/L (99-109); GFR ESTIMATE (CALCULATED) > 59 mL/min/; GLUCOSE 191 mg/dL (70-99); POTASSIUM 5.9 MEQ/L (3.7-5.4); SAMPLE HEMOLYSIS CHECK 0; SAMPLE ICTERIC CHECK 0; SAMPLE LIPEMIA CHECK 0; SODIUM 139 MEQ/L (136-147); UREA NITROGEN (BUN) 21 mg/dL (9-23)
[2017-04-09 06:50] LABS: CARBON DIOXIDE (BICARBONATE) > 40.0 MEQ/L (20-31)
[2017-04-09 07:21] LABS: CARBOXY HGB 2.1 % (0-5); METHEMOGLOBIN 1.5 % (0-1.5); PCO2 106 mm Hg (35-45); PO2 215 mm Hg (80-100); pH 7.33 (7.35-7.45)
[2017-04-09 07:22] LABS: BASE EXCESS 25.4 mEq/L (-3 to +3); BICARBONATE 55.9 mEq/L (22-26); COMMENTS - BLOOD GASES A+C+; DEVICE NC; O2 FLOW 5 L/MIN; SITE LR; TOTAL RESP RATE 31 resp/min
[2017-04-09 16:09] LABS: POINT-OF-CARE METER ID UU13113781
[2017-04-09 21:43] LABS: POINT-OF-CARE METER ID UU14174216
[2017-04-10 04:15] VITALS: BP 129/65
[2017-04-10 06:25] LABS: HEMATOCRIT 29.1 % (38.0-50.0); MCH 33.5 PG (29.0-34.0); MCHC 30.9 G/DL (30.0-36.0); MCV 108.2 FL (86-99); MEAN PLAT.VOLUME 9.9 uM^3 (9.0-12.4); PLATELET COUNT 203 K/uL (156-360); RBC DIS.WIDTH-CV 14.6 % (11.8-14.6); RBC DIS.WIDTH-SD 57.5 % (39-53); RED BLOOD COUNT 2.69 M/uL (4.00-5.50); WHITE BLOOD COUNT 8.4 K/uL (4.1-10.2)
[2017-04-10 07:45] VITALS: BP 134/62
[2017-04-10 08:10] LABS: POINT-OF-CARE METER ID UU13113781; POINT-OF-CARE USER ID ENVKC36
[2017-04-10 11:32] LABS: POINT-OF-CARE METER ID UU13113781; POINT-OF-CARE USER ID ENVKC36
[2017-04-10 12:02] VITALS: BP 126/59
[2017-04-10 16:00] VITALS: BP 130/60
[2017-04-10 16:31] LABS: POINT-OF-CARE METER ID UU14174216
[2017-04-10 20:00] VITALS: BP 113/68
[2017-04-10 20:44] LABS: POINT-OF-CARE METER ID UU13113781
[2017-04-11] VITALS (7 sets, daily range): BP systolic 115–161; BP diastolic 55–72
[2017-04-11 07:29] LABS: ALKALINE PHOSPHATASE 43 IU/L (3-129); ANION GAP ND MEQ/L (2-14); CHLORIDE 86 MEQ/L (99-109); GFR ESTIMATE (CALCULATED) > 59 mL/min/; GLUCOSE 130 mg/dL (70-99); SAMPLE HEMOLYSIS CHECK 0; SAMPLE ICTERIC CHECK 0; SAMPLE LIPEMIA CHECK 0; SODIUM 140 MEQ/L (136-147); TOTAL BILIRUBIN 0.4 MG/DL (0.0-1.0); UREA NITROGEN (BUN) 31 mg/dL (9-23)
[2017-04-11 08:05] LABS: POINT-OF-CARE METER ID UU13113781
[2017-04-11 08:10] LABS: CARBON DIOXIDE (BICARBONATE) > 40.0 MEQ/L (20-31)
[2017-04-11 11:13] LABS: POINT-OF-CARE METER ID UU13113781
[2017-04-12 03:30] VITALS: BP 138/64
[2017-04-12 07:45] VITALS: BP 148/70
[2017-04-12 08:23] LABS: ANION GAP ND MEQ/L (2-14); CHLORIDE 86 MEQ/L (99-109); GFR ESTIMATE (CALCULATED) > 59 mL/min/; GLUCOSE 155 mg/dL (70-99); POTASSIUM 4.3 MEQ/L (3.7-5.4); SAMPLE HEMOLYSIS CHECK 0; SAMPLE ICTERIC CHECK 0; SAMPLE LIPEMIA CHECK 0; SODIUM 141 MEQ/L (136-147); UREA NITROGEN (BUN) 30 mg/dL (9-23)
[2017-04-12 08:24] LABS: CARBON DIOXIDE (BICARBONATE) > 40.0 MEQ/L (20-31)
[2017-04-12 09:25] LABS: LIPASE 20 U/L (1.0-51.0)
[2017-04-12 12:08] VITALS: BP 116/76
[2017-04-12 16:20] VITALS: BP 138/76
[2017-04-12 19:00] VITALS: BP 117/53
[2017-04-12 21:36] LABS: POINT-OF-CARE USER ID ENVKC36
[2017-04-12 23:00] VITALS: BP 126/61
[2017-04-13 03:20] VITALS: BP 129/61
[2017-04-13 07:22] VITALS: BP 137/78
[2017-04-13 07:47] LABS: POINT-OF-CARE METER ID UU14174216
[2017-04-13 12:11] VITALS: BP 120/56
[2017-04-13 16:31] LABS: POINT-OF-CARE METER ID UU14174216
[2017-04-13 17:08] VITALS: BP 153/70
[2017-04-13 18:45] VITALS: BP 139/79
[2017-04-13 21:07] LABS: POINT-OF-CARE METER ID UU14174216
[2017-04-13 23:15] VITALS: BP 115/62
[2017-04-14 03:30] VITALS: BP 134/68
[2017-04-14 07:30] VITALS: BP 133/68
[2017-04-14 12:31] VITALS: BP 129/65
[2017-04-14 16:49] VITALS: BP 134/59
[2017-04-14 19:30] VITALS: BP 138/77
[2017-04-14 23:16] VITALS: BP 127/60
[2017-04-15 03:04] VITALS: BP 131/63
[2017-04-15 06:09] LABS: HEMATOCRIT 28.7 % (38.0-50.0); MCH 33.8 PG (29.0-34.0); MCHC 31.7 G/DL (30.0-36.0); MCV 106.7 FL (86-99); MEAN PLAT.VOLUME 10.3 uM^3 (9.0-12.4); PLATELET COUNT 149 K/uL (156-360); RBC DIS.WIDTH-CV 14.3 % (11.8-14.6); RBC DIS.WIDTH-SD 55.4 % (39-53); RED BLOOD COUNT 2.69 M/uL (4.00-5.50); WHITE BLOOD COUNT 6.6 K/uL (4.1-10.2)
[2017-04-15 06:54] LABS: ALKALINE PHOSPHATASE 53 IU/L (3-129); ANION GAP ND MEQ/L (2-14); CARBON DIOXIDE (BICARBONATE) > 40.0 MEQ/L (20-31); CHLORIDE 88 MEQ/L (99-109); GFR ESTIMATE (CALCULATED) > 59 mL/min/; GLUCOSE 182 mg/dL (70-99); POTASSIUM 5.2 MEQ/L (3.7-5.4); SAMPLE HEMOLYSIS CHECK 0; SAMPLE ICTERIC CHECK 0; SAMPLE LIPEMIA CHECK 0; SODIUM 140 MEQ/L (136-147); TOTAL BILIRUBIN 0.3 MG/DL (0.0-1.0); UREA NITROGEN (BUN) 25 mg/dL (9-23)
[2017-04-15 07:01] LABS: ABS NEUTROPHIL COUNT 5.1; ATYPICAL LYMPHOCYTE 0.9 %; BASOPHILS 0.9 %; EOSINOPHIL ABS CT 0; INSTRUMENT ABS NEUTROPHIL CT 4.1 K/uL; LYMPHOCYTES 15.8 % (15.0-45.0); MYELOCYTES 2.6 %; PLAT.SUFFICIENCY ADEQUATE; POLYCHROMASIA 1+; SEG.NEUTROPHILS 77.2 % (46.0-76.0)
[2017-04-15 07:20] VITALS: BP 170/77
[2017-04-15 07:55] LABS: POINT-OF-CARE METER ID UU13113781
[2017-04-15 11:24] LABS: POINT-OF-CARE METER ID UU13113781
[2017-04-15 12:00] VITALS: BP 121/58
[2017-04-15 16:17] VITALS: BP 133/74
[2017-04-15 18:20] VITALS: BP 167/71
[2017-04-15 21:50] LABS: POINT-OF-CARE METER ID UU14162508
[2017-04-15 23:35] VITALS: BP 158/65
[2017-04-16 03:53] VITALS: BP 148/70
[2017-04-16 07:34] VITALS: BP 145/72
[2017-04-16 08:10] LABS: BASE EXCESS 22.9 mEq/L (-3 to +3); METHEMOGLOBIN 1.5 % (0-1.5); pH 7.37 (7.35-7.45)
[2017-04-16 08:11] LABS: COMMENTS - BLOOD GASES A+C+; DEVICE NC; O2 FLOW 3 L/MIN; PCO2 90 mm Hg (35-45); PO2 76 mm Hg (80-100); SITE RR; TOTAL RESP RATE 20 resp/min
[2017-04-16 12:06] VITALS: BP 113/55
[2017-04-16 13:21] LABS: GLUCOSE 403 mg/dL (70-99)
[2017-04-16 16:11] VITALS: BP 142/58
[2017-04-16 19:55] VITALS: BP 123/60
[2017-04-17 00:09] VITALS: BP 107/55
[2017-04-17 04:15] VITALS: BP 108/61
[2017-04-17 07:00] VITALS: BP 135/71
== END 2017-04-17 10:48 | DRG 190 ==
LOC: EME → EDBD 22:43 → 4EAST 04-08 02:00 → EDOF 04-08 02:00 → 4EAST 04-08 03:16 → 2EAST 04-15 18:18
PROVIDERS: Emergency Medicine; Internal Medicine; Internal Medicine Pulmonary Disease
PROC: 5A09357 Assistance with Respiratory Ventilation, Less than 24 Consecutive Hours, Continuous Positive Airway Pressure (ICD-10-PCS; principal; 2017-04-09)
DX: J44.1 Chronic obstructive pulmonary disease with (acute) exacerbation (principal); Z68.41 Body mass index [BMI] 40.0-44.9, adult; J96.21 Acute and chronic respiratory failure with hypoxia; J90 Pleural effusion, not elsewhere classified; J18.9 Pneumonia, unspecified organism; T81.89XA Other complications of procedures, not elsewhere classified, initial encounter; E66.01 Morbid (severe) obesity due to excess calories; I50.32 Chronic diastolic (congestive) heart failure; E11.65 Type 2 diabetes mellitus with hyperglycemia; R91.1 Solitary pulmonary nodule; I25.10 Atherosclerotic heart disease of native coronary artery without angina pectoris; K80.20 Calculus of gallbladder without cholecystitis without obstruction; R33.9 Retention of urine, unspecified; D63.8 Anemia in other chronic diseases classified elsewhere; N31.2 Flaccid neuropathic bladder, not elsewhere classified; I73.9 Peripheral vascular disease, unspecified; Z88.6 Allergy status to analgesic agent; Z79.52 Long term (current) use of systemic steroids; Z95.5 Presence of coronary angioplasty implant and graft; I10 Essential (primary) hypertension; D64.9 Anemia, unspecified; Z99.81 Dependence on supplemental oxygen; R05 Cough; Z87.891 Personal history of nicotine dependence
CPT/HCPCS: 36600; 71010; 71020; 71250; 76705; 80048; 80053; 82803; 82948; 83605; 83690; 83880; 84484; 84999; 85025; 85027; 85610; 85730; 86900; 86901; 87040; 87641; 93005; 94640; 94640 76; 94660; 94760; 94799; 97530 GO; 99202; 99281; 99285; A6260; J0456; J0692; J0696; J1650; J1815; J1940; J2405; J2930; J7050; J7512

== ENCOUNTER → 2017-06-20 | Outpatient (CLI) | payer OTHER ==
[~2017-06-20] VITALS: Ht 167.6 cm; Wt 117.9 kg
[~2017-06-20] MED LIST changes: +ASCORBIC ACID500 M3 PO; +ATORVASTATIN CA10 MG PO; +DULCOLAX10 MG PR; +FLEET ENEMA-AD118 ML PR; +KLOR-CON20 MEQ PO; +LANTUS 3 M100 UNITS1 SC; +LEVEMIR FL100 UNIT/1 SC; +OMEPRAZOLE20 MG PO; +PHILLIPS'400 MG/5 M PO; +PRAVACHOL40 MG PO; +THEO-24400 MG PO; +TYLENOL REGULA325 MG PO; +VITAMIN A10000 UNIT PO; +ZANTAC150 MG PO; +ZINC SULFATE220 M1 PO; +ZOFRAN4 MG PO
[2017-06-20 10:06] LABS: HEMATOCRIT 30.7 % (38.0-50.0); MCH 33.1 PG (29.0-34.0); MCHC 31.3 G/DL (30.0-36.0); MCV 105.9 FL (86-99); MEAN PLAT.VOLUME 9.4 uM^3 (9.0-12.4); NRBC (%) 0.2 /100 WBC (0-0); PLATELET COUNT 213 K/uL (156-360); RBC DIS.WIDTH-CV 14.8 % (11.8-14.6); RBC DIS.WIDTH-SD 57.6 % (39-53)
[2017-06-20 10:15] LABS: INTER. NORMALIZED RATIO 1.1; PROTHROMBIN TIME 11.7 SEC (10.2-12.9)
[2017-06-20 10:16] LABS: POINT-OF-CARE METER ID UU13113694
[2017-06-20 10:18] LABS: PTT 36.2 SEC (25-37)
== END | disposition home or self-care (01) ==
LOC: OPR 09:27 → EDSTATUS 10:00 → OPR 10:00
PROVIDERS: Internal Medicine Pulmonary Disease
PROC: 0BBC3ZX Excision of Right Upper Lung Lobe, Percutaneous Approach, Diagnostic (ICD-10-PCS; principal; 2017-06-20)
DX: C34.11 Malignant neoplasm of upper lobe, right bronchus or lung (principal); J44.9 Chronic obstructive pulmonary disease, unspecified; Z87.891 Personal history of nicotine dependence; E11.9 Type 2 diabetes mellitus without complications; E78.5 Hyperlipidemia, unspecified; I73.9 Peripheral vascular disease, unspecified; I10 Essential (primary) hypertension; F32.9 Major depressive disorder, single episode, unspecified; Z79.4 Long term (current) use of insulin; Z79.84 Long term (current) use of oral hypoglycemic drugs; Z88.5 Allergy status to narcotic agent
CPT/HCPCS: 71010; 77012; 82948; 85027; 85610; 85730; 88305; 88341 TC; 88342 TC; J3010

== ENCOUNTER 2017-11-09 05:57 | Inpatient (IN) | payer OTHER ==
[~2017-11-09] VITALS: Ht 167.6 cm; Wt 120.9 kg
[~2017-11-09 05:57] MED LIST changes: -THEO-24400 MG PO; +THEOPHYLLINE400 MG PO; +ZANAFLEX2 M1 PO
[2017-11-09 06:54] LABS: EOSINOPHIL (%) 0.5 % (0-5); EOSINOPHIL COUNT 0.1 K/uL (0-0.3); IMMATURE GRANULOCYTE (%) 1.1 % (0.0-0.7); IMMATURE GRANULOCYTE COUNT 0.1 K/uL; INSTRUMENT ABS NEUTROPHIL CT 8.1 K/uL; LYMPHOCYTE COUNT 1.1 K/uL (1.0-2.8); MCH 32.3 PG (29.0-34.0); MCHC 29.6 G/DL (30.0-36.0); MCV 108.9 FL (86-99); MEAN PLAT.VOLUME 9.2 uM^3 (9.0-12.4); MONOCYTE (%) 6.1 % (3-12); MONOCYTE COUNT 0.6 K/uL (0-0.8); NEUTROPHIL (%) 81.6 % (45-76); NEUTROPHIL COUNT 8.1 K/uL (1.8-6.4); PLATELET COUNT 185 K/uL (156-360); RBC DIS.WIDTH-CV 15.3 % (11.8-14.6); RED BLOOD COUNT 2.57 M/uL (4.00-5.50); WHITE BLOOD COUNT 9.9 K/uL (4.1-10.2)
[2017-11-09 07:00] LABS: INTER. NORMALIZED RATIO 1.2; PROTHROMBIN TIME 13.2 SEC (10.2-12.9)
[2017-11-09 07:02] LABS: PTT 39.3 SEC (25-37)
[2017-11-09 07:24] LABS: TROP-I INTERPRETATION NEGATIVE; TROPONIN-I 0.02 ng/mL (0.0-0.30)
[2017-11-09 07:27] LABS: ANION GAP 7 MEQ/L (2-14); CHLORIDE 99 MEQ/L (99-109); GFR ESTIMATE (CALCULATED) > 59 mL/min/ (58.99-99999); GLUCOSE 144 mg/dL (70-99); POTASSIUM 4.2 MEQ/L (3.7-5.4); SAMPLE HEMOLYSIS CHECK 0; SAMPLE ICTERIC CHECK 0; SAMPLE LIPEMIA CHECK 0; SODIUM 146 MEQ/L (136-147); UREA NITROGEN (BUN) 23 mg/dL (9-23)
[2017-11-09 10:55] LABS: Estimated Average Glucose 148 mg/dL (70-123); HEMOGLOBIN A1c (GLYCOHEMOGLOB) 6.8 % HGB (Below 5.7)
[2017-11-09 13:07] VITALS: BP 119/70
[2017-11-09 15:45] VITALS: BP 125/79
[2017-11-09 16:50] LABS: POINT-OF-CARE METER ID UU14174225
[2017-11-09 19:45] VITALS: BP 108/67
[2017-11-09 21:13] LABS: POINT-OF-CARE METER ID UU14174225
[2017-11-09 23:38] VITALS: BP 121/66
[2017-11-10 04:01] VITALS: BP 127/71
[2017-11-10 05:54] LABS: EOSINOPHIL (%) 0.1 % (0-5); HEMATOCRIT 25.6 % (38.0-50.0); IMMATURE GRANULOCYTE (%) 1.2 % (0.0-0.7); IMMATURE GRANULOCYTE COUNT 0.1 K/uL; INSTRUMENT ABS NEUTROPHIL CT 6.4 K/uL; MCH 32.2 PG (29.0-34.0); MCHC 29.7 G/DL (30.0-36.0); MCV 108.5 FL (86-99); MEAN PLAT.VOLUME 9.7 uM^3 (9.0-12.4); MONOCYTE (%) 6.8 % (3-12); MONOCYTE COUNT 0.6 K/uL (0-0.8); NEUTROPHIL COUNT 6.4 K/uL (1.8-6.4); PLATELET COUNT 200 K/uL (156-360); RBC DIS.WIDTH-CV 15.4 % (11.8-14.6); RBC DIS.WIDTH-SD 60.5 % (39-53); RED BLOOD COUNT 2.36 M/uL (4.00-5.50); WHITE BLOOD COUNT 8.1 K/uL (4.1-10.2)
[2017-11-10 06:25] LABS: ANION GAP 7 MEQ/L (2-14); CHLORIDE 92 MEQ/L (99-109); GFR ESTIMATE (CALCULATED) 58 mL/min/ (58.99-99999); GLUCOSE 162 mg/dL (70-99); SAMPLE HEMOLYSIS CHECK 0; SAMPLE ICTERIC CHECK 0; SAMPLE LIPEMIA CHECK 0
[2017-11-10 06:33] LABS: SODIUM 138 MEQ/L (136-147); UREA NITROGEN (BUN) 35 mg/dL (9-23)
[2017-11-10 08:03] VITALS: BP 126/78
[2017-11-10 08:52] LABS: INTERNAL CONTROL VALID? YES
[2017-11-10 09:03] LABS: POINT-OF-CARE METER ID UU13113717
[2017-11-10] MEDS ORDERED: PREDNISONE10 MG PO (11:56)
[2017-11-10 12:00] VITALS: BP 97/67
[2017-11-10 13:06] LABS: POINT-OF-CARE METER ID UU13113717
[2017-11-10 16:00] VITALS: BP 122/79
[2017-11-10 17:47] LABS: POINT-OF-CARE METER ID UU13113717
[2017-11-10 19:34] VITALS: BP 121/69
[2017-11-10 21:25] LABS: POINT-OF-CARE METER ID UU14174225
[2017-11-10 23:55] VITALS: BP 131/76
[2017-11-11 07:03] LABS: EOSINOPHIL (%) 0.1 % (0-5); HEMATOCRIT 26.8 % (38.0-50.0); IMMATURE GRANULOCYTE (%) 1.7 % (0.0-0.7); IMMATURE GRANULOCYTE COUNT 0.2 K/uL; INSTRUMENT ABS NEUTROPHIL CT 7.4 K/uL; MCH 31.2 PG (29.0-34.0); MCHC 29.5 G/DL (30.0-36.0); MCV 105.9 FL (86-99); MEAN PLAT.VOLUME 9.4 uM^3 (9.0-12.4); MONOCYTE (%) 7.4 % (3-12); MONOCYTE COUNT 0.7 K/uL (0-0.8); NEUTROPHIL (%) 79.5 % (45-76); NEUTROPHIL COUNT 7.4 K/uL (1.8-6.4); NRBC (%) 0.3 /100 WBC (0-0); PLATELET COUNT 220 K/uL (156-360); RBC DIS.WIDTH-CV 15.1 % (11.8-14.6); RBC DIS.WIDTH-SD 58.9 % (39-53); RED BLOOD COUNT 2.53 M/uL (4.00-5.50); WHITE BLOOD COUNT 9.4 K/uL (4.1-10.2)
[2017-11-11 07:43] LABS: ANION GAP 7 MEQ/L (2-14); CHLORIDE 95 MEQ/L (99-109); GFR ESTIMATE (CALCULATED) 58 mL/min/ (58.99-99999); POTASSIUM 4.9 MEQ/L (3.7-5.4); SAMPLE HEMOLYSIS CHECK 0; SAMPLE ICTERIC CHECK 0; SAMPLE LIPEMIA CHECK 0; SODIUM 140 MEQ/L (136-147); UREA NITROGEN (BUN) 42 mg/dL (9-23)
[2017-11-11 07:47] LABS: GLUCOSE 114 mg/dL (70-99)
[2017-11-11 07:58] LABS: POINT-OF-CARE METER ID UU14174225
[2017-11-11 08:12] VITALS: BP 124/69
[2017-11-11 11:59] VITALS: BP 130/68
[2017-11-11 12:17] LABS: POINT-OF-CARE METER ID UU14174225
[2017-11-11 15:47] VITALS: BP 127/63
[2017-11-11 17:11] LABS: POINT-OF-CARE METER ID UU14174225
[2017-11-11 19:49] VITALS: BP 122/64
[2017-11-11 21:19] LABS: POINT-OF-CARE METER ID UU14174225
[2017-11-11 23:53] VITALS: BP 132/73
[2017-11-12 03:41] VITALS: BP 131/69
[2017-11-12 07:54] VITALS: BP 146/87
[2017-11-12 08:23] LABS: POINT-OF-CARE METER ID UU14174225
[2017-11-12 12:05] VITALS: BP 123/70
[2017-11-12 12:30] LABS: POINT-OF-CARE METER ID UU14174225
[2017-11-12 16:17] VITALS: BP 150/68; BP 1850/68
[2017-11-12 17:25] LABS: POINT-OF-CARE METER ID UU14174225
[2017-11-12 20:02] VITALS: BP 147/66
[2017-11-12 21:47] LABS: POINT-OF-CARE METER ID UU13113717
[2017-11-12 23:54] VITALS: BP 135/67
[2017-11-13 04:05] VITALS: BP 101/86
[2017-11-13 07:26] LABS: POINT-OF-CARE METER ID UU14174225
[2017-11-13 07:40] VITALS: BP 169/72
[2017-11-13] MEDS ORDERED: CEFDINIR300 MG PO (11:17)
[2017-11-13] MEDS ORDERED: CARDIZEM30 MG PO (11:19)
[2017-11-13] MEDS ORDERED: CARVEDILOL12.5 MG PO (11:20)
[2017-11-13 11:42] VITALS: BP 130/64
[2017-11-13 11:42] LABS: POINT-OF-CARE METER ID UU14174225
== END 2017-11-13 13:18 | disposition home or self-care (01) | DRG 193 ==
LOC: EME → EDBD 05:57 → EME 05:57 → 5SOUTH 09:52 → EDOF 09:52 → ENRESERV 09:57 → EDOF 10:02 → ENRESERV 10:16 → 5SOUTH 12:52 → ENPENDDIS 11-13 → 5SOUTH 11-13 13:18
PROVIDERS: Emergency Medicine; Internal Medicine
DX: J15.9 Unspecified bacterial pneumonia (principal); I50.33 Acute on chronic diastolic (congestive) heart failure; I48.0 Paroxysmal atrial fibrillation; J44.0 Chronic obstructive pulmonary disease with (acute) lower respiratory infection; J96.11 Chronic respiratory failure with hypoxia; J44.1 Chronic obstructive pulmonary disease with (acute) exacerbation; G47.33 Obstructive sleep apnea (adult) (pediatric); E11.9 Type 2 diabetes mellitus without complications; D63.8 Anemia in other chronic diseases classified elsewhere; L89.159 Pressure ulcer of sacral region, unspecified stage; I11.0 Hypertensive heart disease with heart failure; R29.6 Repeated falls; D53.9 Nutritional anemia, unspecified; I25.10 Atherosclerotic heart disease of native coronary artery without angina pectoris; I45.10 Unspecified right bundle-branch block; C34.90 Malignant neoplasm of unspecified part of unspecified bronchus or lung; N40.0 Benign prostatic hyperplasia without lower urinary tract symptoms; Z85.118 Personal history of other malignant neoplasm of bronchus and lung; E78.5 Hyperlipidemia, unspecified; Z99.81 Dependence on supplemental oxygen; Z68.41 Body mass index [BMI] 40.0-44.9, adult; Z87.891 Personal history of nicotine dependence; Z79.4 Long term (current) use of insulin; Z79.01 Long term (current) use of anticoagulants; Z95.1 Presence of aortocoronary bypass graft; Z91.81 History of falling; I25.2 Old myocardial infarction
CPT/HCPCS: 71010; 80048; 82948; 83036; 83605; 83880; 84484; 85025; 85610; 85730; 87040; 87449; 93005; 94640; 94640 76; 94660; 94760; 94799; 99202; 99281; 99285; J0456; J0696; J1650; J1815; J1940; J1956; J2930; J7512; J7644; S0030

== ENCOUNTER 2017-11-14 10:59 | Inpatient (IN) | payer OTHER ==
[~2017-11-14] VITALS: Ht 167.6 cm; Wt 117.0 kg
[2017-11-14] VITALS (9 sets, daily range): BP systolic 132–192; BP diastolic 64–98
[~2017-11-14 10:59] MED LIST changes: +CARDIZEM30 MG PO; +CARVEDILOL12.5 MG PO
[2017-11-14 11:46] LABS: EOSINOPHIL (%) 0.3 % (0-5); HEMATOCRIT 30.3 % (38.0-50.0); IMMATURE GRANULOCYTE (%) 3.1 % (0.0-0.7); IMMATURE GRANULOCYTE COUNT 0.2 K/uL; INSTRUMENT ABS NEUTROPHIL CT 5.9 K/uL; LYMPHOCYTE COUNT 0.5 K/uL (1.0-2.8); MCH 32.1 PG (29.0-34.0); MCHC 29.7 G/DL (30.0-36.0); MCV 108.2 FL (86-99); MEAN PLAT.VOLUME 9.1 uM^3 (9.0-12.4); MONOCYTE (%) 5.5 % (3-12); MONOCYTE COUNT 0.4 K/uL (0-0.8); NEUTROPHIL (%) 83.4 % (45-76); NEUTROPHIL COUNT 5.9 K/uL (1.8-6.4); NRBC (%) 0.4 /100 WBC (0-0); PLATELET COUNT 199 K/uL (156-360); RBC DIS.WIDTH-CV 15.7 % (11.8-14.6); RBC DIS.WIDTH-SD 61.1 % (39-53); WHITE BLOOD COUNT 7.1 K/uL (4.1-10.2)
[2017-11-14 11:48] LABS: BASE EXCESS 19.4 mEq/L (-3 to +3); BICARBONATE 48.5 mEq/L (22-26); CARBOXY HGB 3.5 % (0-5); COMMENTS - BLOOD GASES +C; METHEMOGLOBIN 0.1 % (0-1.5); O2 FLOW 55 L/MIN; PCO2 92 mm Hg (35-45); PO2 63 mm Hg (80-100); SITE RR +A; pH 7.33 (7.35-7.45)
[2017-11-14 11:49] LABS: DEVICE HHFNC; FI02 45 %; TOTAL RESP RATE 28 resp/min
[2017-11-14 11:52] LABS: INTER. NORMALIZED RATIO 1.1; PROTHROMBIN TIME 12.9 SEC (10.2-12.9)
[2017-11-14 11:55] LABS: PTT 39.7 SEC (25-37)
[2017-11-14 12:02] LABS: CHLORIDE 95 mEq/L (99-109); POTASSIUM 4.4 mEq/L (3.7-5.4); SODIUM 143 mEq/L (136-147)
[2017-11-14 12:03] LABS: MAGNESIUM 1.9 mg/dL (1.3-2.7)
[2017-11-14 12:05] LABS: GLUCOSE 224 mg/dL (70-99)
[2017-11-14 12:06] LABS: ANION GAP 7 MEQ/L (2-14); TOTAL BILIRUBIN 0.5 mg/dL (0.0-1.0)
[2017-11-14 12:08] LABS: ALKALINE PHOSPHATASE 109 IU/L (3-129); GFR ESTIMATE (CALCULATED) > 59 mL/min/ (58.99-99999)
[2017-11-14 12:09] LABS: UREA NITROGEN (BUN) 24 mg/dL (9-23)
[2017-11-14 12:10] LABS: TROP-I INTERPRETATION NEGATIVE; TROPONIN-I < 0.01 ng/mL (0.0-0.30)
[2017-11-14 12:11] LABS: CARBON DIOXIDE (BICARBONATE) > 40.0 mEq/L (20-31)
[2017-11-14 12:20] LABS: CK-MB 1.8 ng/mL (0.0-4.9)
[2017-11-14 12:43] LABS: SAMPLE HEMOLYSIS CHECK 0; SAMPLE ICTERIC CHECK 0; SAMPLE LIPEMIA CHECK 0; THEOPHYLLINE 17.2 MCG/ML (10-20)
[2017-11-14 14:09] LABS: CREATINE KINASE 27 IU/L (1-294); TOTAL CK 27 IU/L (1-294)
[2017-11-14 14:48] LABS: TROP-I INTERPRETATION NEGATIVE; TROPONIN-I < 0.01 ng/mL (0.0-0.30)
[2017-11-14 16:47] LABS: METH RESISTANT S AUREUS PCR NEGATIVE (NEGATIVE); PROBE CHECK PASS; SPECIMEN PROCESSING CONTROL PASS
[2017-11-14 21:01] LABS: POINT-OF-CARE METER ID UU14314082
[2017-11-14 21:02] LABS: TROP-I INTERPRETATION NEGATIVE; TROPONIN-I 0.01 ng/mL (0.0-0.30)
[2017-11-15] VITALS (15 sets, daily range): BP systolic 113–152; BP diastolic 45–89
[2017-11-15 05:46] LABS: POINT-OF-CARE METER ID UU14314082
[2017-11-15 05:54] LABS: HEMATOCRIT 27.2 % (38.0-50.0); MCH 31.4 PG (29.0-34.0); MCHC 29.4 G/DL (30.0-36.0); MCV 106.7 FL (86-99); MEAN PLAT.VOLUME 10.5 uM^3 (9.0-12.4); PLATELET COUNT 183 K/uL (156-360); RBC DIS.WIDTH-CV 15.4 % (11.8-14.6); RBC DIS.WIDTH-SD 59.2 % (39-53); RED BLOOD COUNT 2.55 M/uL (4.00-5.50); WHITE BLOOD COUNT 4.9 K/uL (4.1-10.2)
[2017-11-15 06:03] LABS: INTER. NORMALIZED RATIO 1.1; PROTHROMBIN TIME 12.5 SEC (10.2-12.9)
[2017-11-15 06:32] LABS: ALKALINE PHOSPHATASE 87 IU/L (3-129); ANION GAP 9 MEQ/L (2-14); CHLORIDE 97 MEQ/L (99-109); GFR ESTIMATE (CALCULATED) > 59 mL/min/ (58.99-99999); GLUCOSE 187 mg/dL (70-99); SAMPLE HEMOLYSIS CHECK 0; SAMPLE ICTERIC CHECK 0; SAMPLE LIPEMIA CHECK 0; SODIUM 142 MEQ/L (136-147); TOTAL BILIRUBIN 0.4 MG/DL (0.0-1.0); UREA NITROGEN (BUN) 25 mg/dL (9-23)
[2017-11-15 08:51] LABS: ADD MIUA? YES; BILIRUBIN NEGATIVE; BLOOD NEGATIVE; COLOR YELLOW ((YELLOW)); GLUCOSE (STRIP) NEGATIVE; KETONES NEGATIVE; LEUKOCYTES NEGATIVE; NITRITE NEGATIVE; PROTEIN (STRIP) 100; SPECIFIC GRAVITY 1.019 (1.000-1.030); UROBILINOGEN 0.2 MG/DL (0.2-1.0)
[2017-11-15 09:29] LABS: BACTERIA NONE SEEN /HPF; EPITHELIAL CELLS RARE /HPF; HYALINE CASTS 0-5 /LPF; MUCUS NONE SEEN /LPF; RED BLOOD CELLS 0-5 /HPF (0-5); UCUL ADDED? NO; WHITE BLOOD CELLS 0-5 /HPF (0-5)
[2017-11-15 11:42] LABS: POINT-OF-CARE METER ID UU14314082
[2017-11-15 16:45] LABS: POINT-OF-CARE METER ID UU14314082
[2017-11-15 22:26] LABS: POINT-OF-CARE METER ID UU14314082
[2017-11-16] VITALS (14 sets, daily range): BP systolic 97–164; BP diastolic 56–80
[2017-11-16 08:53] LABS: POINT-OF-CARE METER ID UU14162636
[2017-11-16 12:10] LABS: POINT-OF-CARE METER ID UU14162636
[2017-11-16 16:34] LABS: POINT-OF-CARE METER ID UU13113725
[2017-11-16 21:45] LABS: POINT-OF-CARE METER ID UU14302474
[2017-11-17 06:07] LABS: POINT-OF-CARE METER ID UU13113725
[2017-11-17 06:24] LABS: EOSINOPHIL (%) 0 % (0-5); HEMATOCRIT 29.7 % (38.0-50.0); IMMATURE GRANULOCYTE (%) 2.2 % (0.0-0.7); IMMATURE GRANULOCYTE COUNT 0.2 K/uL; INSTRUMENT ABS NEUTROPHIL CT 7.4 K/uL; LYMPHOCYTE COUNT 0.4 K/uL (1.0-2.8); MCH 31.4 PG (29.0-34.0); MCHC 29.3 G/DL (30.0-36.0); MCV 107.2 FL (86-99); MEAN PLAT.VOLUME 9.3 uM^3 (9.0-12.4); MONOCYTE (%) 2.8 % (3-12); MONOCYTE COUNT 0.2 K/uL (0-0.8); NEUTROPHIL (%) 90.4 % (45-76); NEUTROPHIL COUNT 7.4 K/uL (1.8-6.4); NRBC (%) 0.4 /100 WBC (0-0); PLATELET COUNT 205 K/uL (156-360); RBC DIS.WIDTH-CV 15.2 % (11.8-14.6); RED BLOOD COUNT 2.77 M/uL (4.00-5.50); WHITE BLOOD COUNT 8.2 K/uL (4.1-10.2)
[2017-11-17 06:44] LABS: ANION GAP 4 MEQ/L (2-14); CHLORIDE 99 MEQ/L (99-109); GFR ESTIMATE (CALCULATED) > 59 mL/min/ (58.99-99999); GLUCOSE 202 mg/dL (70-99); POTASSIUM 4.3 MEQ/L (3.7-5.4); SAMPLE HEMOLYSIS CHECK 0; SAMPLE ICTERIC CHECK 0; SAMPLE LIPEMIA CHECK 0; SODIUM 143 MEQ/L (136-147); UREA NITROGEN (BUN) 36 mg/dL (9-23)
[2017-11-17 07:49] VITALS: BP 132/74
[2017-11-17 11:38] LABS: POINT-OF-CARE METER ID UU13113725
[2017-11-17 16:34] LABS: POINT-OF-CARE METER ID UU13113725
[2017-11-17 16:59] VITALS: BP 132/64
[2017-11-17 21:36] VITALS: BP 142/62
[2017-11-17 21:52] LABS: POINT-OF-CARE METER ID UU13113725
[2017-11-17 23:43] VITALS: BP 129/61
[2017-11-18 06:07] LABS: POINT-OF-CARE METER ID UU13113774
[2017-11-18 07:47] VITALS: BP 132/77
[2017-11-18 11:36] LABS: POINT-OF-CARE METER ID UU13113725
[2017-11-18 16:14] LABS: POINT-OF-CARE METER ID UU13113725
[2017-11-18 16:21] VITALS: BP 137/65
[2017-11-18 21:47] LABS: POINT-OF-CARE METER ID UU13113725
[2017-11-18 21:49] VITALS: BP 117/56
[2017-11-18 23:45] VITALS: BP 153/62
[2017-11-19 06:57] LABS: POINT-OF-CARE METER ID UU13113725
[2017-11-19 07:32] VITALS: BP 135/69
[2017-11-19] MEDS ORDERED: LEVOFLOXACIN750 MG PO (08:53)
[2017-11-19] MEDS ORDERED: PREDNISONE20 MG PO (08:53)
[2017-11-20] MEDS ORDERED: PREDNISONE10 MG PO (15:11)
[2017-11-20] MEDS ORDERED: METFORMIN HCL500 M1 PO (15:11)
[2017-11-20] MEDS ORDERED: ACID REDUCER 1150 MG PO (15:11)
[2017-11-20] MEDS ORDERED: COZAAR50 MG PO (15:12)
[2017-11-20] MEDS ORDERED: OMEPRAZOLE20 MG PO (15:12)
== END 2017-11-19 11:21 | disposition home health service (06) | DRG 190 ==
LOC: EME 10:59 → EDOF 13:59 → 4WEST 13:59 → CANRESERV 14:00 → ENRESERV 14:00 → 4WEST 15:00 → ENRESERV 11-16 07:34 → 5EAST 11-16 13:49 → ENPENDDIS 11-19 → 5EAST 11-19 11:21
PROVIDERS: Emergency Medicine; Internal Medicine; Student in an Organized Health Care Education/Training Program
PROC: 5A09357 Assistance with Respiratory Ventilation, Less than 24 Consecutive Hours, Continuous Positive Airway Pressure (ICD-10-PCS; principal; 2017-11-15)
DX: J44.1 Chronic obstructive pulmonary disease with (acute) exacerbation (principal); J96.21 Acute and chronic respiratory failure with hypoxia; J18.9 Pneumonia, unspecified organism; J96.22 Acute and chronic respiratory failure with hypercapnia; E87.2 Acidosis; C34.11 Malignant neoplasm of upper lobe, right bronchus or lung; E87.4 Mixed disorder of acid-base balance; F33.1 Major depressive disorder, recurrent, moderate; Z68.41 Body mass index [BMI] 40.0-44.9, adult; J98.11 Atelectasis; I50.9 Heart failure, unspecified; G47.33 Obstructive sleep apnea (adult) (pediatric); I25.10 Atherosclerotic heart disease of native coronary artery without angina pectoris; E78.5 Hyperlipidemia, unspecified; I48.2 Chronic atrial fibrillation; E11.9 Type 2 diabetes mellitus without complications; L89.159 Pressure ulcer of sacral region, unspecified stage; D63.8 Anemia in other chronic diseases classified elsewhere; E66.9 Obesity, unspecified; Z99.81 Dependence on supplemental oxygen; I25.2 Old myocardial infarction; Z79.4 Long term (current) use of insulin; Z95.1 Presence of aortocoronary bypass graft; Z92.3 Personal history of irradiation; Z87.891 Personal history of nicotine dependence; Z79.52 Long term (current) use of systemic steroids; Z91.14 Patient's other noncompliance with medication regimen; Z91.19 Patient's noncompliance with other medical treatment and regimen; Z82.49 Family history of ischemic heart disease and other diseases of the circulatory system; Z83.3 Family history of diabetes mellitus
CPT/HCPCS: 36600; 71010; 80048; 80053; 80198; 81003; 82550; 82553; 82803; 82948; 83605; 83735; 83880; 84145 90; 84484; 85025; 85027; 85610; 85730; 86141; 87040; 87502; 87641; 93005; 94002; 94640; 94640 76; 94660; 94760; 94799; 99202; 99281; 99285; J1100; J1120; J1644; J1815; J2405; J2543; J2930; J7030; J7050; J7644; S0028

== ENCOUNTER 2017-11-20 10:56 | Observation (INO) | payer OTHER ==
[~2017-11-20] VITALS: Ht 167.6 cm; Wt 118.3 kg
[2017-11-20 12:30] LABS: BASOPHIL (%) 0.3 % (0-1); EOSINOPHIL (%) 0.1 % (0-5); HEMATOCRIT 33.8 % (38.0-50.0); HEMOGLOBIN 10.1 G/DL (12.5-16.6); IMMATURE GRANULOCYTE (%) 2.5 % (0.0-0.7); LYMPHOCYTE (%) 4.2 % (15-42); LYMPHOCYTE COUNT 0.5 K/uL (1.0-2.8); MCH 31.7 PG (29.0-34.0); MCHC 29.9 G/DL (30.0-36.0); MONOCYTE (%) 4.6 % (3-12); MONOCYTE COUNT 0.5 K/uL (0-0.8); NEUTROPHIL (%) 88.3 % (45-76); NEUTROPHIL COUNT 10.4 K/uL (1.8-6.4); NRBC (%) 0.2 /100 WBC (0-0); PLATELET COUNT 191 K/uL (156-360); RBC DIS.WIDTH-CV 15.3 % (11.8-14.6); RBC DIS.WIDTH-SD 59.7 % (39-53); RED BLOOD COUNT 3.19 M/uL (4.00-5.50); WHITE BLOOD COUNT 11.8 K/uL (4.1-10.2)
[2017-11-20 12:36] LABS: ALBUMIN 3.2 g/dL (3.2-4.8); CHLORIDE 93 mEq/L (99-109); POTASSIUM 3.8 mEq/L (3.7-5.4); SODIUM 142 mEq/L (136-147)
[2017-11-20 12:38] LABS: GLUCOSE 162 mg/dL (70-99); TOTAL PROTEIN 6.2 g/dL (6.4-8.3)
[2017-11-20 12:40] LABS: TOTAL BILIRUBIN 0.4 mg/dL (0.0-1.0)
[2017-11-20 12:42] LABS: ALKALINE PHOSPHATASE 84 IU/L (3-129); GFR ESTIMATE (CALCULATED) > 59 mL/min/ (58.99-99999)
[2017-11-20 12:43] LABS: AST (GOT) 23 IU/L (2-34); UREA NITROGEN (BUN) 28 mg/dL (9-23)
[2017-11-20 12:45] LABS: ALT (GPT) 63 IU/L (3-49)
[2017-11-20 12:46] LABS: TROP-I INTERPRETATION NEGATIVE; TROPONIN-I 0.02 ng/mL (0.0-0.30)
[2017-11-20 12:49] LABS: CARBON DIOXIDE (BICARBONATE) > 40.0 mEq/L (20-31)
[2017-11-20 13:40] LABS: BASE EXCESS 20.8 mEq/L (-3 to +3); BICARBONATE 49.7 mEq/L (22-26); COMMENTS - BLOOD GASES A+C+; DEVICE NC; METHEMOGLOBIN 1.1 % (0-1.5); O2 FLOW 5 L/MIN; PCO2 86 mm Hg (35-45); PO2 103 mm Hg (80-100); SITE RR; TOTAL RESP RATE 17 resp/min; pH 7.37 (7.35-7.45)
[2017-11-20] MEDS ORDERED: PREDNISONE10 MG PO (15:11)
[2017-11-20] MEDS ORDERED: METFORMIN HCL500 M1 PO (15:11)
[2017-11-20] MEDS ORDERED: ACID REDUCER 1150 MG PO (15:11)
[2017-11-20] MEDS ORDERED: OMEPRAZOLE20 MG PO (15:12)
[2017-11-20] MEDS ORDERED: COZAAR50 MG PO (15:12)
[2017-11-20 17:58] VITALS: BP 169/73
[2017-11-20 19:00] VITALS: BP 144/65
[2017-11-21 03:22] VITALS: BP 113/56
[2017-11-21 05:30] LABS: HEMATOCRIT 29.2 % (38.0-50.0); HEMOGLOBIN 8.8 G/DL (12.5-16.6); MCHC 30.1 G/DL (30.0-36.0); MCV 106.2 FL (86-99); PLATELET COUNT 180 K/uL (156-360); RBC DIS.WIDTH-CV 15.4 % (11.8-14.6); RBC DIS.WIDTH-SD 59.2 % (39-53); RED BLOOD COUNT 2.75 M/uL (4.00-5.50); WHITE BLOOD COUNT 8.7 K/uL (4.1-10.2)
[2017-11-21 06:12] LABS: CHLORIDE 94 MEQ/L (99-109); CREATININE 0.9 MG/DL (0.6-1.3); GFR ESTIMATE (CALCULATED) > 59 mL/min/ (58.99-99999); GLUCOSE 237 mg/dL (70-99); POTASSIUM 4.3 MEQ/L (3.7-5.4); SODIUM 146 MEQ/L (136-147); UREA NITROGEN (BUN) 33 mg/dL (9-23)
[2017-11-21 06:15] LABS: CARBON DIOXIDE (BICARBONATE) > 40.0 MEQ/L (20-31)
[2017-11-21 08:54] VITALS: BP 106/53
[2017-11-21 11:54] VITALS: BP 119/78
[2017-11-21 16:20] VITALS: BP 144/70
[2017-11-21 20:00] VITALS: BP 132/58
[2017-11-21 23:39] VITALS: BP 126/59
[2017-11-22 04:20] VITALS: BP 127/68
[2017-11-22 07:20] VITALS: BP 131/54
[2017-11-22 11:26] VITALS: BP 117/53
[2017-11-22 12:31] VITALS: BP 108/56
[2017-11-22] MEDS ORDERED: LASIX40 MG PO ×2 (15:30→15:45)
[2017-11-22] MEDS ORDERED: LEVEMIR100 UNIT/2 SC (15:30)
[2017-11-22] MEDS ORDERED: LEVOFLOXACIN750 MG PO (15:30)
[2017-11-22 15:38] VITALS: BP 131/58
[2017-11-22] MEDS ORDERED: ALPRAZOLAM0.25 M2 PO (15:57)
== END 2017-11-22 19:30 ==
LOC: EME 10:56 → EDOF 15:09 → 5WEST 15:09 → EDOF 15:09 → ENRESERV 15:10 → 5WEST 17:37 → ENPENDDIS 11-22 → 5WEST 11-22 19:30
PROVIDERS: Emergency Medicine; Hospitalist
DX: R06.02 Shortness of breath (principal); I11.0 Hypertensive heart disease with heart failure; I50.43 Acute on chronic combined systolic (congestive) and diastolic (congestive) heart failure; R06.89 Other abnormalities of breathing; E11.9 Type 2 diabetes mellitus without complications; Z85.118 Personal history of other malignant neoplasm of bronchus and lung; J44.9 Chronic obstructive pulmonary disease, unspecified; Z99.81 Dependence on supplemental oxygen; Z87.891 Personal history of nicotine dependence; Z87.01 Personal history of pneumonia (recurrent); R60.0 Localized edema; E78.5 Hyperlipidemia, unspecified; I48.91 Unspecified atrial fibrillation; I25.10 Atherosclerotic heart disease of native coronary artery without angina pectoris; I25.2 Old myocardial infarction; Z79.4 Long term (current) use of insulin; G47.33 Obstructive sleep apnea (adult) (pediatric); I65.23 Occlusion and stenosis of bilateral carotid arteries; K21.9 Gastro-esophageal reflux disease without esophagitis; F41.9 Anxiety disorder, unspecified; Z95.1 Presence of aortocoronary bypass graft; Z88.5 Allergy status to narcotic agent; Z82.49 Family history of ischemic heart disease and other diseases of the circulatory system; Z83.3 Family history of diabetes mellitus
CPT/HCPCS: 36600; 71010; 71020; 80048; 80053; 82803; 82948; 83880; 84484; 85025; 85027; 87502; 93005; 93306; 93970; 94640; 94640 76; 94660; 94799; 99202; 99281; 99285; G0378; J1644; J1815; J1940; J7512; J7644

== ENCOUNTER 2017-12-06 13:29 | Emergency (ER) | payer OTHER ==
[~2017-12-06] VITALS: Ht 167.6 cm; Wt 109.5 kg
[~2017-12-06 13:29] MED LIST changes: +ACID REDUCER 1150 MG PO; +ALPRAZOLAM0.25 M2 PO; +COZAAR25 MG PO; +LASIX40 MG PO; +METFORMIN HCL500 M1 PO
[2017-12-06 15:14] LABS: HEMATOCRIT 29.9 % (38.0-50.0); HEMOGLOBIN 9.4 G/DL (12.5-16.6); MCH 32.2 PG (29.0-34.0); MCHC 31.4 G/DL (30.0-36.0); MCV 102.4 FL (86-99); RBC DIS.WIDTH-CV 14.5 % (11.8-14.6); RBC DIS.WIDTH-SD 54.2 % (39-53); RED BLOOD COUNT 2.92 M/uL (4.00-5.50); WHITE BLOOD COUNT 7.1 K/uL (4.1-10.2)
[2017-12-06 15:39] LABS: TROP-I INTERPRETATION NEGATIVE; TROPONIN-I 0.02 ng/mL (0.0-0.30)
[2017-12-06 15:55] LABS: HEMATOLOGY COMMENT 1 SN; PLAT.SUFFICIENCY DECREASED; PLATELET COUNT 118 K/uL (156-360)
[2017-12-06 17:07] LABS: CHLORIDE 95 mEq/L (99-109)
[2017-12-06 17:12] LABS: CREATININE 1.2 mg/dL (0.6-1.3); GFR ESTIMATE (CALCULATED) > 59 mL/min/ (58.99-99999)
[2017-12-06 17:13] LABS: UREA NITROGEN (BUN) 17 mg/dL (9-23)
[2017-12-06 17:19] LABS: GLUCOSE 266 mg/dL (70-99)
[2017-12-06 17:25] LABS: POTASSIUM 4.6 mEq/L (3.7-5.4); SODIUM 136 mEq/L (136-147)
[2017-12-06 22:20] VITALS: BP 113/89
== END 2017-12-06 22:22 ==
LOC: EME 13:29
PROVIDERS: Emergency Medicine
DX: R25.1 Tremor, unspecified (principal); R06.02 Shortness of breath; J44.9 Chronic obstructive pulmonary disease, unspecified; Z85.118 Personal history of other malignant neoplasm of bronchus and lung; Z99.81 Dependence on supplemental oxygen; Z87.891 Personal history of nicotine dependence; E11.9 Type 2 diabetes mellitus without complications; Z79.84 Long term (current) use of oral hypoglycemic drugs; E78.5 Hyperlipidemia, unspecified; I10 Essential (primary) hypertension; F32.9 Major depressive disorder, single episode, unspecified; F41.9 Anxiety disorder, unspecified; K21.9 Gastro-esophageal reflux disease without esophagitis; I25.2 Old myocardial infarction; Z95.1 Presence of aortocoronary bypass graft
CPT/HCPCS: 71046; 80048; 84484; 85027; 93005; 94640; 99281; 99285; J7512

== ENCOUNTER 2017-12-11 13:14 | Inpatient (IN) | payer OTHER ==
[~2017-12-11] VITALS: Ht 193 cm; Wt 125.5 kg
[2017-12-11 14:21] LABS: BASOPHIL (%) 0.2 % (0-1); EOSINOPHIL (%) 0.2 % (0-5); HEMATOCRIT 34.6 % (38.0-50.0); HEMOGLOBIN 10.5 G/DL (12.5-16.6); IMMATURE GRANULOCYTE (%) 1.7 % (0.0-0.7); LYMPHOCYTE (%) 6.2 % (15-42); LYMPHOCYTE COUNT 0.4 K/uL (1.0-2.8); MCHC 30.3 G/DL (30.0-36.0); MCV 105.5 FL (86-99); MONOCYTE (%) 6.2 % (3-12); MONOCYTE COUNT 0.4 K/uL (0-0.8); NEUTROPHIL (%) 85.5 % (45-76); NEUTROPHIL COUNT 5.4 K/uL (1.8-6.4); PLATELET COUNT 127 K/uL (156-360); RBC DIS.WIDTH-CV 14.4 % (11.8-14.6); RBC DIS.WIDTH-SD 55.6 % (39-53); RED BLOOD COUNT 3.28 M/uL (4.00-5.50); WHITE BLOOD COUNT 6.3 K/uL (4.1-10.2)
[2017-12-11 14:31] LABS: ALBUMIN 3.6 g/dL (3.2-4.8); CHLORIDE 100 mEq/L (99-109); SODIUM 142 mEq/L (136-147)
[2017-12-11 14:34] LABS: GLUCOSE 121 mg/dL (70-99); TOTAL PROTEIN 6.7 g/dL (6.4-8.3)
[2017-12-11 14:36] LABS: TOTAL BILIRUBIN 0.3 mg/dL (0.0-1.0)
[2017-12-11 14:37] LABS: ALKALINE PHOSPHATASE 88 IU/L (3-129); CREATININE 0.9 mg/dL (0.6-1.3); GFR ESTIMATE (CALCULATED) > 59 mL/min/ (58.99-99999)
[2017-12-11 14:39] LABS: AST (GOT) 17 IU/L (2-34); UREA NITROGEN (BUN) 17 mg/dL (9-23)
[2017-12-11 14:40] LABS: ALT (GPT) 26 IU/L (3-49)
[2017-12-11 14:42] LABS: TROP-I INTERPRETATION NEGATIVE; TROPONIN-I 0.13 ng/mL (0.0-0.30)
[2017-12-11] MEDS ORDERED: LEVEMIR FL100 UNIT/1 SC (17:11)
[2017-12-11] MEDS ORDERED: MIRALAX119 GM PO (17:12)
[2017-12-11] MEDS ORDERED: DELTASONE20 M1 PO ×2 (17:13→17:14)
[2017-12-11] MEDS ORDERED: PREDNISONE10 MG PO ×2 (17:14→17:15)
[2017-12-11] MEDS ORDERED: PROBIOTIC1 EAC1 PO ×2 (17:15→17:20)
[2017-12-11] MEDS ORDERED: CARVEDILOL12.5 MG PO (17:18)
[2017-12-11] MEDS ORDERED: CEFEPIME HCL1 GM IV (17:18)
[2017-12-11] MEDS ORDERED: FUROSEMIDE20 MG PO (17:19)
[2017-12-11] MEDS ORDERED: MUCINEX DM ER1 EACH PO (17:20)
[2017-12-11] MEDS ORDERED: XANAX0.25 MG PO (17:20)
[2017-12-11] MEDS ORDERED: CARDIZEM30 MG PO (17:21)
[2017-12-11] MEDS ORDERED: NOVOLOG PE100 UNITS/ SC (17:22)
[2017-12-11] MEDS ORDERED: SALINE NOSE SPR45 M1 BOTH NARES (17:23)
[2017-12-11] MEDS ORDERED: DULCOLAX10 MG PR (17:23)
[2017-12-11] MEDS ORDERED: FLEET ENEMA-AD118 ML PR (17:24)
[2017-12-11] MEDS ORDERED: PHILLIPS'400 MG/5 M PO (17:24)
[2017-12-11] MEDS ORDERED: TYLENOL REGULA325 MG PO (17:25)
[2017-12-12 00:40] VITALS: BP 115/69
[2017-12-12 05:35] LABS: HEMATOCRIT 30.9 % (38.0-50.0); HEMOGLOBIN 9.2 G/DL (12.5-16.6); MCH 31.2 PG (29.0-34.0); MCHC 29.8 G/DL (30.0-36.0); MCV 104.7 FL (86-99); PLATELET COUNT 113 K/uL (156-360); RBC DIS.WIDTH-CV 14.2 % (11.8-14.6); RBC DIS.WIDTH-SD 54.3 % (39-53); RED BLOOD COUNT 2.95 M/uL (4.00-5.50); WHITE BLOOD COUNT 6.1 K/uL (4.1-10.2)
[2017-12-12 05:56] LABS: ALKALINE PHOSPHATASE 78 IU/L (3-129); ALT (GPT) 19 IU/L (3-49); AST (GOT) 18 IU/L (2-34); CHLORIDE 96 MEQ/L (99-109); GFR ESTIMATE (CALCULATED) > 59 mL/min/ (58.99-99999); POTASSIUM 5.2 MEQ/L (3.7-5.4); SODIUM 138 MEQ/L (136-147); TOTAL BILIRUBIN 0.4 MG/DL (0.0-1.0); TOTAL PROTEIN 5.7 G/DL (6.4-8.3)
[2017-12-12 05:58] LABS: GLUCOSE 207 mg/dL (70-99); UREA NITROGEN (BUN) 26 mg/dL (9-23)
[2017-12-12 20:07] VITALS: BP 110/55
[2017-12-13] VITALS (12 sets, daily range): BP systolic 118–164; BP diastolic 58–97
[2017-12-13 07:05] LABS: BASOPHIL (%) 0.1 % (0-1); EOSINOPHIL (%) 0 % (0-5); HEMATOCRIT 32.2 % (38.0-50.0); HEMOGLOBIN 9.7 G/DL (12.5-16.6); IMMATURE GRANULOCYTE (%) 1.4 % (0.0-0.7); LYMPHOCYTE (%) 2.9 % (15-42); LYMPHOCYTE COUNT 0.2 K/uL (1.0-2.8); MCH 31.3 PG (29.0-34.0); MCHC 30.1 G/DL (30.0-36.0); MCV 103.9 FL (86-99); MONOCYTE (%) 2.9 % (3-12); MONOCYTE COUNT 0.2 K/uL (0-0.8); NEUTROPHIL (%) 92.7 % (45-76); NEUTROPHIL COUNT 6.4 K/uL (1.8-6.4); PLATELET COUNT 121 K/uL (156-360); RBC DIS.WIDTH-SD 53.2 % (39-53); WHITE BLOOD COUNT 6.9 K/uL (4.1-10.2)
[2017-12-13 07:38] LABS: CHLORIDE 96 MEQ/L (99-109); CREATININE 0.9 MG/DL (0.6-1.3); GFR ESTIMATE (CALCULATED) > 59 mL/min/ (58.99-99999); GLUCOSE 162 mg/dL (70-99); POTASSIUM 4.5 MEQ/L (3.7-5.4); SODIUM 141 MEQ/L (136-147); UREA NITROGEN (BUN) 29 mg/dL (9-23)
[2017-12-13 12:03] LABS: BASE EXCESS 15.7 mEq/L (-3 to +3); BICARBONATE 45.8 mEq/L (22-26); CARBOXY HGB 1.8 % (0-5); PO2 93 mm Hg (80-100)
[2017-12-13 12:04] LABS: COMMENTS - BLOOD GASES A+C+; DEVICE NC; O2 FLOW 6 L/MIN; PCO2 102 mm Hg (35-45); SITE LR; TOTAL RESP RATE 22 resp/min; pH 7.26 (7.35-7.45)
[2017-12-14] VITALS (24 sets, daily range): BP systolic 105–143; BP diastolic 54–86
[2017-12-14 11:08] LABS: HEMATOCRIT 32.8 % (38.0-50.0); MCH 32.3 PG (29.0-34.0); MCHC 30.5 G/DL (30.0-36.0); MCV 105.8 FL (86-99); PLATELET COUNT 113 K/uL (156-360); RBC DIS.WIDTH-SD 54.3 % (39-53); WHITE BLOOD COUNT 5.6 K/uL (4.1-10.2)
[2017-12-14 11:47] LABS: DIGOXIN 1.6 ng/mL (0.8-2.0)
[2017-12-14 11:48] LABS: ALBUMIN 3.1 G/DL (3.2-4.8); ALKALINE PHOSPHATASE 74 IU/L (3-129); ALT (GPT) 18 IU/L (3-49); AST (GOT) 12 IU/L (2-34); CHLORIDE 93 MEQ/L (99-109); GFR ESTIMATE (CALCULATED) > 59 mL/min/ (58.99-99999); GLUCOSE 163 mg/dL (70-99); PHOSPHORUS 3.4 mg/dL (2.5-4.9); POTASSIUM 4.5 MEQ/L (3.7-5.4); SODIUM 142 MEQ/L (136-147); TOTAL BILIRUBIN 0.4 MG/DL (0.0-1.0); TOTAL PROTEIN 5.6 G/DL (6.4-8.3); UREA NITROGEN (BUN) 32 mg/dL (9-23)
[2017-12-14 11:50] LABS: CARBON DIOXIDE (BICARBONATE) > 40.0 MEQ/L (20-31)
[2017-12-14 22:54] LABS: BASE EXCESS 22.3 mEq/L (-3 to +3); CARBOXY HGB 1.9 % (0-5); METHEMOGLOBIN 1.2 % (0-1.5); PO2 78 mm Hg (80-100); pH 7.34 (7.35-7.45)
[2017-12-14 22:55] LABS: BICARBONATE 51.8 mEq/L (22-26); COMMENTS - BLOOD GASES C+A+; DEVICE NIV; FI02 40 %; MODE SPONT; PCO2 96 mm Hg (35-45); PEEP 5 CM/H20; PRES. SUPPORT 18 CM/H2O; SITE RR; TOTAL RESP RATE 17 resp/min
[2017-12-15] VITALS (26 sets, daily range): BP systolic 111–177; BP diastolic 54–97
[2017-12-15 09:05] LABS: VANCOMYCIN, TROUGH 25.4 MCG/ML (10-20)
[2017-12-15 10:42] LABS: HEMATOCRIT 30.7 % (38.0-50.0); HEMOGLOBIN 9.2 G/DL (12.5-16.6); MCH 31.1 PG (29.0-34.0); MCV 103.7 FL (86-99); PLATELET COUNT 99 K/uL (156-360); RBC DIS.WIDTH-CV 13.6 % (11.8-14.6); RBC DIS.WIDTH-SD 52.4 % (39-53); RED BLOOD COUNT 2.96 M/uL (4.00-5.50); WHITE BLOOD COUNT 4.6 K/uL (4.1-10.2)
[2017-12-15 11:03] LABS: CARBON DIOXIDE (BICARBONATE) > 40.0 MEQ/L (20-31); CHLORIDE 94 MEQ/L (99-109); GFR ESTIMATE (CALCULATED) > 59 mL/min/ (58.99-99999); GLUCOSE 89 mg/dL (70-99); MAGNESIUM 2.1 mg/dl (1.3-2.7); POTASSIUM 4.3 MEQ/L (3.7-5.4); SODIUM 144 MEQ/L (136-147); UREA NITROGEN (BUN) 34 mg/dL (9-23)
[2017-12-15 11:30] LABS: TRIGLYCERIDES 189 MG/DL (Normal: <150)
[2017-12-15 11:53] LABS: BICARBONATE 51.8 mEq/L (22-26); CARBOXY HGB 1.5 % (0-5); METHEMOGLOBIN 1.6 % (0-1.5)
[2017-12-15 11:54] LABS: COMMENTS - BLOOD GASES A+C+; DEVICE VENT; FI02 60 %; MECHANICAL RATE 18 resp/min; MODE ACVC; PCO2 68 mm Hg (35-45); PO2 121 mm Hg (80-100); SITE LR; TOTAL RESP RATE 18 resp/min; pH 7.49 (7.35-7.45)
[2017-12-15 11:55] LABS: PEEP 5 CM/H20; TIDAL VOLUME 500 ML
[2017-12-15 16:05] LABS: BASE EXCESS 26.7 mEq/L (-3 to +3); BICARBONATE 53.7 mEq/L (22-26); CARBOXY HGB 2.3 % (0-5); pH 7.44 (7.35-7.45)
[2017-12-15 16:06] LABS: PCO2 79 mm Hg (35-45); PO2 83 mm Hg (80-100)
[2017-12-15 16:07] LABS: COMMENTS - BLOOD GASES A+C+; DEVICE VENT; FI02 45 %; MECHANICAL RATE 14 resp/min; MODE ACVC; PEEP 5 CM/H20; SITE LR; TIDAL VOLUME 400 ML; TOTAL RESP RATE 14 resp/min
[2017-12-16] VITALS (18 sets, daily range): BP systolic 107–151; BP diastolic 49–84
[2017-12-16 04:40] LABS: HEMATOCRIT 29.3 % (38.0-50.0); HEMOGLOBIN 9.4 G/DL (12.5-16.6); MCH 32.8 PG (29.0-34.0); MCHC 32.1 G/DL (30.0-36.0); MCV 102.1 FL (86-99); NRBC (%) 0.5 /100 WBC (0-0); PLATELET COUNT 93 K/uL (156-360); RBC DIS.WIDTH-CV 13.2 % (11.8-14.6); RBC DIS.WIDTH-SD 50.1 % (39-53); RED BLOOD COUNT 2.87 M/uL (4.00-5.50); WHITE BLOOD COUNT 4.4 K/uL (4.1-10.2)
[2017-12-16 04:50] LABS: CHLORIDE 91 mEq/L (99-109); POTASSIUM 3.9 mEq/L (3.7-5.4); SODIUM 146 mEq/L (136-147)
[2017-12-16 04:55] LABS: GFR ESTIMATE (CALCULATED) > 59 mL/min/ (58.99-99999)
[2017-12-16 04:56] LABS: UREA NITROGEN (BUN) 35 mg/dL (9-23)
[2017-12-16 05:03] LABS: CARBON DIOXIDE (BICARBONATE) > 40.0 mEq/L (20-31); GLUCOSE 183 mg/dL (70-99)
[2017-12-16 05:16] LABS: BASE EXCESS 29.1 mEq/L (-3 to +3); BICARBONATE 56.4 mEq/L (22-26); CARBOXY HGB 1.7 % (0-5); pH 7.49 (7.35-7.45)
[2017-12-16 05:18] LABS: COMMENTS - BLOOD GASES A+C+; DEVICE VENT; FI02 35 %; MECHANICAL RATE 14 resp/min; MODE AC; PCO2 74 mm Hg (35-45); PEEP 5 CM/H20; PO2 61 mm Hg (80-100); SITE LR; TOTAL RESP RATE 14 resp/min
[2017-12-16 08:04] LABS: FOLIC ACID (FOLATE) 21.6 NG/ML (5.0-22.0)
[2017-12-16 12:04] LABS: VANCOMYCIN, TROUGH 26.7 MCG/ML (10-20)
[2017-12-16 17:20] LABS: BASOPHIL (%) 0.2 % (0-1); EOSINOPHIL (%) 0 % (0-5); HEMATOCRIT 29.1 % (38.0-50.0); HEMOGLOBIN 9.1 G/DL (12.5-16.6); IMMATURE GRANULOCYTE (%) 2.3 % (0.0-0.7); LYMPHOCYTE (%) 5.3 % (15-42); LYMPHOCYTE COUNT 0.2 K/uL (1.0-2.8); MCH 31.9 PG (29.0-34.0); MCHC 31.3 G/DL (30.0-36.0); MCV 102.1 FL (86-99); MONOCYTE (%) 3.9 % (3-12); MONOCYTE COUNT 0.2 K/uL (0-0.8); NEUTROPHIL (%) 88.3 % (45-76); NEUTROPHIL COUNT 3.8 K/uL (1.8-6.4); PLATELET COUNT 99 K/uL (156-360); RBC DIS.WIDTH-CV 13.5 % (11.8-14.6); RBC DIS.WIDTH-SD 50.4 % (39-53); RED BLOOD COUNT 2.85 M/uL (4.00-5.50); WHITE BLOOD COUNT 4.3 K/uL (4.1-10.2)
[2017-12-16 18:08] LABS: ALBUMIN 2.8 G/DL (3.2-4.8); ALKALINE PHOSPHATASE 55 IU/L (3-129); ALT (GPT) 13 IU/L (3-49); AST (GOT) 12 IU/L (2-34); CHLORIDE 89 MEQ/L (99-109); CREATININE 0.9 MG/DL (0.6-1.3); GFR ESTIMATE (CALCULATED) > 59 mL/min/ (58.99-99999); GLUCOSE 222 mg/dL (70-99); PHOSPHORUS 3.1 mg/dL (2.5-4.9); POTASSIUM 3.7 MEQ/L (3.7-5.4); SODIUM 141 MEQ/L (136-147); TOTAL PROTEIN 5.5 G/DL (6.4-8.3); UREA NITROGEN (BUN) 35 mg/dL (9-23)
[2017-12-16 18:11] LABS: TOTAL BILIRUBIN 0.5 MG/DL (0.0-1.0)
[2017-12-16 18:12] LABS: CARBON DIOXIDE (BICARBONATE) > 40.0 MEQ/L (20-31)
[2017-12-17] VITALS (24 sets, daily range): BP systolic 85–140; BP diastolic 43–84
[2017-12-17 05:21] LABS: BASE EXCESS 23.7 mEq/L (-3 to +3); BICARBONATE 53.3 mEq/L (22-26); COMMENTS - BLOOD GASES C+; DEVICE VENT; FI02 35 %; MODE PS; PCO2 88 mm Hg (35-45); PEEP 5 CM/H20; PO2 77 mm Hg (80-100); PRES. SUPPORT 10 CM/H2O; SITE LR; TOTAL RESP RATE 10 resp/min; pH 7.39 (7.35-7.45)
[2017-12-17 11:04] LABS: BASOPHIL (%) 0.2 % (0-1); EOSINOPHIL (%) 0 % (0-5); HEMATOCRIT 30.8 % (38.0-50.0); HEMOGLOBIN 9.5 G/DL (12.5-16.6); IMMATURE GRANULOCYTE (%) 3.4 % (0.0-0.7); LYMPHOCYTE (%) 6.3 % (15-42); LYMPHOCYTE COUNT 0.3 K/uL (1.0-2.8); MCH 31.4 PG (29.0-34.0); MCHC 30.8 G/DL (30.0-36.0); MCV 101.7 FL (86-99); MONOCYTE (%) 4.5 % (3-12); MONOCYTE COUNT 0.2 K/uL (0-0.8); NEUTROPHIL (%) 85.6 % (45-76); NEUTROPHIL COUNT 4.3 K/uL (1.8-6.4); NRBC (%) 0.6 /100 WBC (0-0); PLATELET COUNT 97 K/uL (156-360); RBC DIS.WIDTH-CV 13.7 % (11.8-14.6); RBC DIS.WIDTH-SD 51.3 % (39-53); RED BLOOD COUNT 3.03 M/uL (4.00-5.50); WHITE BLOOD COUNT 5.1 K/uL (4.1-10.2)
[2017-12-17 12:45] LABS: ALBUMIN 2.7 G/DL (3.2-4.8); ALKALINE PHOSPHATASE 56 IU/L (3-129); ALT (GPT) 11 IU/L (3-49); AST (GOT) 10 IU/L (2-34); CHLORIDE 89 MEQ/L (99-109); CREATININE 1.1 MG/DL (0.6-1.3); GFR ESTIMATE (CALCULATED) > 59 mL/min/ (58.99-99999); GLUCOSE 324 mg/dL (70-99); MAGNESIUM 2.2 mg/dl (1.3-2.7); PHOSPHORUS 3.7 mg/dL (2.5-4.9); POTASSIUM 3.6 MEQ/L (3.7-5.4); SODIUM 143 MEQ/L (136-147); TOTAL BILIRUBIN 0.5 MG/DL (0.0-1.0); TOTAL PROTEIN 4.9 G/DL (6.4-8.3); UREA NITROGEN (BUN) 46 mg/dL (9-23)
[2017-12-17 12:47] LABS: CARBON DIOXIDE (BICARBONATE) > 40.0 MEQ/L (20-31); VANCOMYCIN, TROUGH 12.8 MCG/ML (10-20)
[2017-12-17 16:58] LABS: HIGH-SENS C-REACTIVE PROTEIN 2.44 MG/DL (0.02-0.20)
[2017-12-18] VITALS (30 sets, daily range): BP systolic 96–147; BP diastolic 47–80
[2017-12-18 15:55] LABS: PROCALCITONIN+ 0.11 ng/mL (<0.10)
[2017-12-18 17:05] LABS: HEMATOCRIT 29.7 % (38.0-50.0); HEMOGLOBIN 9.2 G/DL (12.5-16.6); MCH 31.4 PG (29.0-34.0); MCV 101.4 FL (86-99); NRBC (%) 0.4 /100 WBC (0-0); PLATELET COUNT 112 K/uL (156-360); RBC DIS.WIDTH-CV 13.5 % (11.8-14.6); RBC DIS.WIDTH-SD 50.6 % (39-53); RED BLOOD COUNT 2.93 M/uL (4.00-5.50); WHITE BLOOD COUNT 7.7 K/uL (4.1-10.2)
[2017-12-18 17:35] LABS: ABS NEUTROPHIL COUNT 7.2; ANISOCYTOSIS 1+; BAND NEUTROPHILS 8.3 % (0-8.0); EOSINOPHIL ABS CT 0; LYMPHOCYTES 2.7 % (15.0-45.0); MACROCYTES 1+; METAMYELOCYTES 0.9 %; MICROCYTOSIS 1+; MONOCYTES 2.8 % (0-9.0); SEG.NEUTROPHILS 85.3 % (46.0-76.0)
[2017-12-18 17:54] LABS: ALBUMIN 2.8 G/DL (3.2-4.8); ALKALINE PHOSPHATASE 62 IU/L (3-129); ALT (GPT) 10 IU/L (3-49); AST (GOT) 11 IU/L (2-34); CARBON DIOXIDE (BICARBONATE) > 40.0 MEQ/L (20-31); CHLORIDE 94 MEQ/L (99-109); CREATININE 0.9 MG/DL (0.6-1.3); GFR ESTIMATE (CALCULATED) > 59 mL/min/ (58.99-99999); GLUCOSE 279 mg/dL (70-99); MAGNESIUM 2.4 mg/dl (1.3-2.7); PHOSPHORUS 2.9 mg/dL (2.5-4.9); POTASSIUM 3.8 MEQ/L (3.7-5.4); SODIUM 142 MEQ/L (136-147); UREA NITROGEN (BUN) 42 mg/dL (9-23)
[2017-12-18 17:55] LABS: TOTAL BILIRUBIN 0.3 MG/DL (0.0-1.0); TOTAL PROTEIN 5.7 G/DL (6.4-8.3)
[2017-12-19] VITALS (32 sets, daily range): BP systolic 111–178; BP diastolic 47–96
[2017-12-19 09:32] LABS: HEMOGLOBIN 9.2 G/DL (12.5-16.6); MCHC 30.7 G/DL (30.0-36.0); PLATELET COUNT 110 K/uL (156-360); RBC DIS.WIDTH-CV 13.6 % (11.8-14.6); RBC DIS.WIDTH-SD 49.5 % (39-53); RED BLOOD COUNT 2.97 M/uL (4.00-5.50); WHITE BLOOD COUNT 8.6 K/uL (4.1-10.2)
[2017-12-19 10:07] LABS: ALBUMIN 2.8 G/DL (3.2-4.8); ALKALINE PHOSPHATASE 60 IU/L (3-129); ALT (GPT) 11 IU/L (3-49); AST (GOT) 10 IU/L (2-34); CHLORIDE 95 MEQ/L (99-109); CREATININE 0.9 MG/DL (0.6-1.3); GFR ESTIMATE (CALCULATED) > 59 mL/min/ (58.99-99999); GLUCOSE 343 mg/dL (70-99); MAGNESIUM 2.5 mg/dl (1.3-2.7); PHOSPHORUS 2.8 mg/dL (2.5-4.9); POTASSIUM 4.1 MEQ/L (3.7-5.4); SODIUM 143 MEQ/L (136-147); UREA NITROGEN (BUN) 46 mg/dL (9-23)
[2017-12-19 10:11] LABS: CARBON DIOXIDE (BICARBONATE) > 40.0 MEQ/L (20-31); TOTAL BILIRUBIN 0.4 MG/DL (0.0-1.0)
[2017-12-19 10:31] LABS: ABS NEUTROPHIL COUNT 8.1; ANISOCYTOSIS 1+; EOSINOPHIL ABS CT 0; LYMPHOCYTES 2.7 % (15.0-45.0); METAMYELOCYTES 1.8 %; MICROCYTOSIS 1+; MONOCYTES 0.9 % (0-9.0); PLAT.SUFFICIENCY DECREASED; SEG.NEUTROPHILS 94.6 % (46.0-76.0)
[2017-12-19 15:57] LABS: M. pneumoniae Ab, IgG 2.22 (<=0.90); M. pneumoniae Ab, IgM 19 U/mL (<770)
[2017-12-19 18:04] LABS: BASE EXCESS 19.1 mEq/L (-3 to +3); METHEMOGLOBIN 1.5 % (0-1.5); PO2 68 mm Hg (80-100); pH 7.44 (7.35-7.45)
[2017-12-19 18:05] LABS: BICARBONATE 46.2 mEq/L (22-26); COMMENTS - BLOOD GASES C+; DEVICE VENT; FI02 30 %; MODE TUBE COMP; PCO2 68 mm Hg (35-45); PEEP 5 CM/H20; SITE LR; TOTAL RESP RATE 20 resp/min
[2017-12-19 22:33] LABS: Heparin Induced Plt Ab Negative (Negative)
[2017-12-20] VITALS (23 sets, daily range): BP systolic 130–153; BP diastolic 61–83
[2017-12-20 09:27] LABS: HEMATOCRIT 34.3 % (38.0-50.0); HEMOGLOBIN 10.9 G/DL (12.5-16.6); MCH 31.8 PG (29.0-34.0); MCHC 31.8 G/DL (30.0-36.0); PLATELET COUNT 105 K/uL (156-360); RBC DIS.WIDTH-CV 13.6 % (11.8-14.6); RBC DIS.WIDTH-SD 49.8 % (39-53); RED BLOOD COUNT 3.43 M/uL (4.00-5.50); WHITE BLOOD COUNT 8.6 K/uL (4.1-10.2)
[2017-12-20 10:14] LABS: ALBUMIN 2.8 G/DL (3.2-4.8); ALKALINE PHOSPHATASE 60 IU/L (3-129); ALT (GPT) 13 IU/L (3-49); AST (GOT) 12 IU/L (2-34); CHLORIDE 99 MEQ/L (99-109); CREATININE 0.7 MG/DL (0.6-1.3); GFR ESTIMATE (CALCULATED) > 59 mL/min/ (58.99-99999); MAGNESIUM 2.4 mg/dl (1.3-2.7); PHOSPHORUS 3.4 mg/dL (2.5-4.9); POTASSIUM 4.5 MEQ/L (3.7-5.4); SODIUM 144 MEQ/L (136-147); TOTAL BILIRUBIN 0.4 MG/DL (0.0-1.0); TOTAL PROTEIN 5.4 G/DL (6.4-8.3); UREA NITROGEN (BUN) 37 mg/dL (9-23)
[2017-12-20 10:19] LABS: GLUCOSE 155 mg/dL (70-99)
[2017-12-20 10:21] LABS: ABS NEUTROPHIL COUNT 7.3; ANISOCYTOSIS 1+; EOSINOPHIL ABS CT 0; MACROCYTES 1+; PLAT.SUFFICIENCY DECREASED
[2017-12-20 11:29] LABS: Cytomegalovirus IgG Antibody+ >10.00 U/mL (<0.60); Cytomegalovirus IgM Antibody+ <30.00 AU/mL (<30.00)
[2017-12-20 16:32] LABS: UFH SRA Result POSITIVE (Negative)
[2017-12-21] VITALS (24 sets, daily range): BP systolic 105–167; BP diastolic 55–85
[2017-12-21 08:30] LABS: HEMATOCRIT 33.8 % (38.0-50.0); HEMOGLOBIN 10.4 G/DL (12.5-16.6); MCH 30.6 PG (29.0-34.0); MCHC 30.8 G/DL (30.0-36.0); MCV 99.4 FL (86-99); PLATELET COUNT 115 K/uL (156-360); RBC DIS.WIDTH-CV 13.6 % (11.8-14.6); RBC DIS.WIDTH-SD 49.6 % (39-53); WHITE BLOOD COUNT 9.6 K/uL (4.1-10.2)
[2017-12-21 08:58] LABS: ANISOCYTOSIS 1+; ATYPICAL LYMPHOCYTE 2.6 %; BAND NEUTROPHILS 2.6 % (0-8.0); BASOPH.STIPPLING 1+; EOSINOPHIL ABS CT 0; HYPOCHROMASIA 1+; LYMPHOCYTES 0.9 % (15.0-45.0); METAMYELOCYTES 1.7 %; MONOCYTES 0.9 % (0-9.0); PLAT.SUFFICIENCY DECREASED; POLYCHROMASIA 1+; SEG.NEUTROPHILS 91.3 % (46.0-76.0); TEAR DROP CELLS 1+
[2017-12-21 09:13] LABS: ALBUMIN 2.8 G/DL (3.2-4.8); ALKALINE PHOSPHATASE 62 IU/L (3-129); CHLORIDE 99 MEQ/L (99-109); CREATININE 0.8 MG/DL (0.6-1.3); GFR ESTIMATE (CALCULATED) > 59 mL/min/ (58.99-99999); GLUCOSE 167 mg/dL (70-99); MAGNESIUM 2.3 mg/dl (1.3-2.7); PHOSPHORUS 3.6 mg/dL (2.5-4.9); POTASSIUM 5.1 MEQ/L (3.7-5.4); SODIUM 140 MEQ/L (136-147); TOTAL PROTEIN 5.4 G/DL (6.4-8.3); UREA NITROGEN (BUN) 39 mg/dL (9-23)
[2017-12-21 09:15] LABS: ALT (GPT) 53 IU/L (3-49); AST (GOT) 38 IU/L (2-34); TOTAL BILIRUBIN 0.5 MG/DL (0.0-1.0)
[2017-12-22] VITALS (15 sets, daily range): BP systolic 117–152; BP diastolic 50–89
[2017-12-22 05:06] LABS: HEMATOCRIT 31.6 % (38.0-50.0); HEMOGLOBIN 9.9 G/DL (12.5-16.6); MCH 31.1 PG (29.0-34.0); MCHC 31.3 G/DL (30.0-36.0); MCV 99.4 FL (86-99); PLATELET COUNT 142 K/uL (156-360); RBC DIS.WIDTH-CV 13.7 % (11.8-14.6); RBC DIS.WIDTH-SD 50.3 % (39-53); RED BLOOD COUNT 3.18 M/uL (4.00-5.50); WHITE BLOOD COUNT 9.6 K/uL (4.1-10.2)
[2017-12-22 05:34] LABS: ABS NEUTROPHIL COUNT 8.8; ANISOCYTOSIS 1+; ATYPICAL LYMPHOCYTE 0.9 %; BAND NEUTROPHILS 0.9 % (0-8.0); EOSINOPHIL ABS CT 0; LYMPHOCYTES 4.4 % (15.0-45.0); METAMYELOCYTES 0.9 %; MONOCYTES 1.7 % (0-9.0); PLAT.SUFFICIENCY ADEQUATE; SEG.NEUTROPHILS 91.2 % (46.0-76.0)
[2017-12-22 05:47] LABS: ALBUMIN 2.8 G/DL (3.2-4.8); ALKALINE PHOSPHATASE 62 IU/L (3-129); ALT (GPT) 49 IU/L (3-49); AST (GOT) 24 IU/L (2-34); CHLORIDE 96 MEQ/L (99-109); CREATININE 0.9 MG/DL (0.6-1.3); GFR ESTIMATE (CALCULATED) > 59 mL/min/ (58.99-99999); GLUCOSE 101 mg/dL (70-99); MAGNESIUM 2.3 mg/dl (1.3-2.7); PHOSPHORUS 3.8 mg/dL (2.5-4.9); POTASSIUM 4.8 MEQ/L (3.7-5.4); SODIUM 138 MEQ/L (136-147); TOTAL BILIRUBIN 0.4 MG/DL (0.0-1.0); TOTAL PROTEIN 5.3 G/DL (6.4-8.3); UREA NITROGEN (BUN) 41 mg/dL (9-23)
[2017-12-23 04:16] VITALS: BP 158/76
[2017-12-23 06:07] LABS: HEMATOCRIT 31.9 % (38.0-50.0); MCH 31.9 PG (29.0-34.0); MCHC 31.3 G/DL (30.0-36.0); MCV 101.9 FL (86-99); NRBC (%) 0.2 /100 WBC (0-0); PLATELET COUNT 144 K/uL (156-360); RBC DIS.WIDTH-CV 13.7 % (11.8-14.6); RED BLOOD COUNT 3.13 M/uL (4.00-5.50); WHITE BLOOD COUNT 9.3 K/uL (4.1-10.2)
[2017-12-23 06:40] LABS: ALBUMIN 2.7 G/DL (3.2-4.8); ALKALINE PHOSPHATASE 64 IU/L (3-129); ALT (GPT) 49 IU/L (3-49); AST (GOT) 17 IU/L (2-34); CHLORIDE 99 MEQ/L (99-109); CREATININE 0.8 MG/DL (0.6-1.3); GFR ESTIMATE (CALCULATED) > 59 mL/min/ (58.99-99999); GLUCOSE 212 mg/dL (70-99); MAGNESIUM 2.2 mg/dl (1.3-2.7); PHOSPHORUS 3.8 mg/dL (2.5-4.9); SODIUM 142 MEQ/L (136-147); TOTAL BILIRUBIN 0.3 MG/DL (0.0-1.0); TOTAL PROTEIN 4.8 G/DL (6.4-8.3); UREA NITROGEN (BUN) 36 mg/dL (9-23)
[2017-12-23 06:49] LABS: ABS NEUTROPHIL COUNT 8.7; ANISOCYTOSIS 1+; ATYPICAL LYMPHOCYTE 1.7 %; EOSINOPHIL ABS CT 0; LYMPHOCYTES 3.5 % (15.0-45.0); METAMYELOCYTES 0.9 %; PLAT.SUFFICIENCY DECREASED; POIKILOCYTOSIS 1+; SEG.NEUTROPHILS 93.9 % (46.0-76.0)
[2017-12-23 07:23] VITALS: BP 140/73
[2017-12-23 11:36] VITALS: BP 146/69
[2017-12-23 15:55] VITALS: BP 125/59
[2017-12-23 20:15] VITALS: BP 131/58
[2017-12-24 00:07] VITALS: BP 161/77
[2017-12-24 03:31] VITALS: BP 154/77
[2017-12-24 05:55] LABS: BASOPHIL (%) 0.3 % (0-1); EOSINOPHIL (%) 0 % (0-5); HEMATOCRIT 32.6 % (38.0-50.0); HEMOGLOBIN 10.2 G/DL (12.5-16.6); IMMATURE GRANULOCYTE (%) 3.1 % (0.0-0.7); LYMPHOCYTE (%) 3.7 % (15-42); LYMPHOCYTE COUNT 0.4 K/uL (1.0-2.8); MCH 31.7 PG (29.0-34.0); MCHC 31.3 G/DL (30.0-36.0); MCV 101.2 FL (86-99); MONOCYTE (%) 5.2 % (3-12); MONOCYTE COUNT 0.5 K/uL (0-0.8); NEUTROPHIL (%) 87.7 % (45-76); NEUTROPHIL COUNT 8.7 K/uL (1.8-6.4); PLATELET COUNT 149 K/uL (156-360); RBC DIS.WIDTH-CV 13.6 % (11.8-14.6); RBC DIS.WIDTH-SD 50.5 % (39-53); RED BLOOD COUNT 3.22 M/uL (4.00-5.50)
[2017-12-24 06:15] LABS: ALBUMIN 2.8 G/DL (3.2-4.8); ALKALINE PHOSPHATASE 64 IU/L (3-129); ALT (GPT) 48 IU/L (3-49); AST (GOT) 16 IU/L (2-34); CARBON DIOXIDE (BICARBONATE) > 40.0 MEQ/L (20-31); CHLORIDE 96 MEQ/L (99-109); CREATININE 0.7 MG/DL (0.6-1.3); GFR ESTIMATE (CALCULATED) > 59 mL/min/ (58.99-99999); GLUCOSE 120 mg/dL (70-99); MAGNESIUM 2.2 mg/dl (1.3-2.7); SODIUM 139 MEQ/L (136-147); TOTAL BILIRUBIN 0.3 MG/DL (0.0-1.0); TOTAL PROTEIN 4.8 G/DL (6.4-8.3); UREA NITROGEN (BUN) 35 mg/dL (9-23)
[2017-12-24 07:23] VITALS: BP 137/69
[2017-12-24 11:30] VITALS: BP 158/68
[2017-12-24 16:20] VITALS: BP 157/65
[2017-12-25 00:58] VITALS: BP 141/76
[2017-12-25 06:04] LABS: BASOPHIL (%) 0.1 % (0-1); EOSINOPHIL (%) 0 % (0-5); HEMATOCRIT 32.8 % (38.0-50.0); LYMPHOCYTE (%) 3.7 % (15-42); LYMPHOCYTE COUNT 0.4 K/uL (1.0-2.8); MCH 30.7 PG (29.0-34.0); MCHC 30.5 G/DL (30.0-36.0); MCV 100.6 FL (86-99); MONOCYTE (%) 4.4 % (3-12); MONOCYTE COUNT 0.4 K/uL (0-0.8); NEUTROPHIL (%) 89.8 % (45-76); NEUTROPHIL COUNT 8.6 K/uL (1.8-6.4); PLATELET COUNT 164 K/uL (156-360); RBC DIS.WIDTH-CV 13.5 % (11.8-14.6); RED BLOOD COUNT 3.26 M/uL (4.00-5.50); WHITE BLOOD COUNT 9.6 K/uL (4.1-10.2)
[2017-12-25 06:46] LABS: ALBUMIN 2.8 G/DL (3.2-4.8); ALKALINE PHOSPHATASE 58 IU/L (3-129); ALT (GPT) 42 IU/L (3-49); AST (GOT) 14 IU/L (2-34); CHLORIDE 98 MEQ/L (99-109); CREATININE 0.7 MG/DL (0.6-1.3); GFR ESTIMATE (CALCULATED) > 59 mL/min/ (58.99-99999); GLUCOSE 104 mg/dL (70-99); MAGNESIUM 2.1 mg/dl (1.3-2.7); PHOSPHORUS 2.8 mg/dL (2.5-4.9); SODIUM 144 MEQ/L (136-147); TOTAL PROTEIN 4.8 G/DL (6.4-8.3); UREA NITROGEN (BUN) 33 mg/dL (9-23)
[2017-12-25 06:48] LABS: CARBON DIOXIDE (BICARBONATE) > 40.0 MEQ/L (20-31); TOTAL BILIRUBIN 0.4 MG/DL (0.0-1.0)
[2017-12-25 07:15] VITALS: BP 128/58
[2017-12-25 11:00] VITALS: BP 133/61
[2017-12-25 15:30] VITALS: BP 131/63
[2017-12-25 19:22] VITALS: BP 143/63
[2017-12-25 23:21] VITALS: BP 160/93
[2017-12-26 03:38] VITALS: BP 124/60
[2017-12-26 07:31] VITALS: BP 142/63
[2017-12-26 16:22] VITALS: BP 145/66
[2017-12-26 20:13] VITALS: BP 159/70
[2017-12-27 00:12] VITALS: BP 147/78; BP 159/70
[2017-12-27 07:59] VITALS: BP 153/73
[2017-12-27] MEDS ORDERED: DIGOXIN250 MCG PO (11:27)
[2017-12-27] MEDS ORDERED: CARDIZEM CD120 MG PO (11:30)
[2017-12-27] MEDS ORDERED: PREDNISONE10 MG PO (11:32)
== END 2017-12-27 14:11 | DRG 264 ==
LOC: EME 13:14 → 4EAST 18:00 → EDOF 18:00 → 4WEST 18:00 → ENRESERV 18:22 → 4EAST 12-12 00:22 → 4WEST 12-13 12:26 → CANRESERV 12-13 12:27 → ENRESERV 12-13 12:27 → 4WEST 12-13 12:27 → ENRESERV 12-22 11:15 → 4EAST 12-22 12:22 → ENRESERV 12-24 13:18 → 5EAST 12-24 15:40
PROVIDERS: Emergency Medicine Emergency Medical Services; Internal Medicine; Internal Medicine Critical Care Medicine; Internal Medicine Pulmonary Disease; Obstetrics & Gynecology
DX: I48.2 Chronic atrial fibrillation (principal); J44.1 Chronic obstructive pulmonary disease with (acute) exacerbation; J18.9 Pneumonia, unspecified organism; J44.0 Chronic obstructive pulmonary disease with (acute) lower respiratory infection; J96.21 Acute and chronic respiratory failure with hypoxia; J96.22 Acute and chronic respiratory failure with hypercapnia; I11.0 Hypertensive heart disease with heart failure; I50.43 Acute on chronic combined systolic (congestive) and diastolic (congestive) heart failure; I48.92 Unspecified atrial flutter; G47.33 Obstructive sleep apnea (adult) (pediatric); Z99.81 Dependence on supplemental oxygen; D69.6 Thrombocytopenia, unspecified; E66.9 Obesity, unspecified; Z68.41 Body mass index [BMI] 40.0-44.9, adult; I27.29 Other secondary pulmonary hypertension; I27.81 Cor pulmonale (chronic); E11.9 Type 2 diabetes mellitus without complications; I25.10 Atherosclerotic heart disease of native coronary artery without angina pectoris; I95.9 Hypotension, unspecified; Z66 Do not resuscitate; I45.10 Unspecified right bundle-branch block; I34.0 Nonrheumatic mitral (valve) insufficiency; I25.5 Ischemic cardiomyopathy; N40.0 Benign prostatic hyperplasia without lower urinary tract symptoms; D53.9 Nutritional anemia, unspecified; D63.8 Anemia in other chronic diseases classified elsewhere; F41.9 Anxiety disorder, unspecified; F32.9 Major depressive disorder, single episode, unspecified; K21.9 Gastro-esophageal reflux disease without esophagitis; E78.5 Hyperlipidemia, unspecified; Z85.118 Personal history of other malignant neoplasm of bronchus and lung; Z92.3 Personal history of irradiation; I25.2 Old myocardial infarction; Z95.1 Presence of aortocoronary bypass graft; Z79.4 Long term (current) use of insulin; Z87.891 Personal history of nicotine dependence; Z79.82 Long term (current) use of aspirin; Z82.49 Family history of ischemic heart disease and other diseases of the circulatory system; Z83.3 Family history of diabetes mellitus
CPT/HCPCS: 36600; 71045; 71250; 71260; 80048; 80053; 80162; 80202; 81003; 82140; 82607; 82746; 82803; 82948; 83520 90; 83735; 83880; 84100; 84145 90; 84478; 84484; 85025; 85025 91; 85027; 86022 90; 86141; 86644 90; 86645 90; 86713 90; 86738 90; 87070; 87081; 87102; 87116; 87205; 87206; 87252 90; 87254 90; 87278; 87641; 88108; 88312; 93005; 94002; 94003; 94640; 94640 76; 94660; 94667; 94668; 94760; 94799; 97530 GO; 97530 GP; 99202; 99281; 99285; C9113; J0696; J1120; J1160; J1644; J1815; J1940; J2405; J2543; J2704; J2920; J2930; J3370; J7050; S0028